=== PATIENT | female | born 1950 | race Caucasian/White ===

== ENCOUNTER 2016-06-21 06:00 | Observation (INO) | payer OTHER ==
[~2016-06-21] VITALS: Ht 157.5 cm; Wt 82.0 kg
[2016-06-21] MEDS ORDERED: ONDANSETRON INJ 2 MG/ML 2 ML VIAL IV STA (06:09)
[2016-06-21] MEDS ORDERED: ONDANSETRON INJ 2 MG/ML 2 ML VIAL ONE (06:09)
[2016-06-21] MEDS ORDERED: SODIUM CHLORIDE 0.9% 1000ML 1,000 ML IV STA ×2 (06:09→07:10)
--- NOTE | 2016-06-21 06:25 | EMERGENCY ROOM VISIT NOTE ---
History Report prepared by Andrei: Arlene Forbes Under the Supervision of: Dr. Shannon Ho D.O. 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 The nursing staff states that the patient took at Phenergan suppository with no relief. The patient states that she was not having any symptoms before going to bed and woke up with the symptoms. The patient denies any abdominal pain, diarrhea, fever or chills. She states that usually when she gets sick with any illness she experiences nausea and vomiting. The patient states that she recently had a colonoscopy that did not show anything significant. 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 A total of 10 systems reviewed and were otherwise negative. Past Medical & Surgical Medical Problems: (1) Diabetes mellitus Surgical Problems: (1) History of delivery (2) Hx of cholecystectomy Family History No significant family histoy secondary to age Social History Marital Status: Housing Status: lives with significant other Occupation Status: retired Current/Historical Medications Scheduled Glimepiride (Glimepiride), 2 MG PO BID Levothyroxine Sodium (Synthroid), 112 MCG PO DAILY Lisinopril/Hctz (Zestoretic 20MG/12.5MG), 1 TAB PO DAILY Metformin Hcl (Glucophage), 500 MG PO BID Omeprazole (Prilosec), 20 MG PO DAILY Scheduled PRN Meclizine HCl (Meclizine 25), 25 MG PO TID PRN for Dizziness or Vertigo Allergies Coded Allergies: Acetaminophen (Unverified Allergy, Intermediate, UNKNOWN, 06/21/16) Codeine (Unverified Allergy, Intermediate, SEVERE SHAKES/TREMORS, 06/21/16) Fentanyl (Unverified Allergy, Intermediate, UNKNOWN, 06/21/16) Hydromorphone (Unverified Allergy, Intermediate, UNKNOWN, 06/21/16) Levofloxacin (Unverified Allergy, Intermediate, SWELLING OF FACE/THROAT, ) Metformin (Unverified Allergy, Intermediate, ENDLESS DIARRHEA, 06/21/16) Oxycodone (Unverified Allergy, Intermediate, UNKNOWN, 06/21/16) Physical Exam Vital Signs Date Time Temp Pulse Resp B/P Pulse Ox O2 Delivery O2 Flow Rate FiO2 06/21/16 06:50 88 06/21/16 06:46 85 18 185/105 98 Room Air 06/21/16 06:00 36.5 91 22 164/111 98 Room Air Physical Exam General: Vomiting bile HEENT: Head - normocephalic and atraumatic Pupils are equal, round, and reactive to light. Extraocular eye muscles are intact, and sclera are anicteric. Nose - moist nasal mucosa without discharge. Mouth - moist buccal mucosa. Oropharynx is nonerythematous and there is no tonsillar exudate or edema noted. Neck: Supple; no JVD, nuchal rigidity, cervical lymphadenopathy. Heart: Regular rate and rhythm. There is a normal S1 and S2 with no murmurs, clicks, or gallops appreciated. Lungs: Clear to auscultation bilaterally with no wheezes, rales, or rhonchi. Abdomen: Soft, completely nontender, nondistended, with good bowel sounds. There are no palpable pulsatile masses or hepatosplenomegaly. There is no guarding, rigidity, or rebound noted. Extremities: No evidence of cyanosis, clubbing, or edema. There are easily palpable peripheral pulses. Skin: warm and dry with good turgor and no rashes. Medical Decision & Procedures ER Provider Diagnostic Interpretation: X-ray results as stated below per interpretation by me: Obstruction Series X-Ray: No free air. Tiny air fluid levels. Moderate colonic fecal retention. No obvious signs of obstruction. X-ray results as stated below per interpretation by me and the radiologist: CHEST AND ABDOMEN 2 VIEWS HISTORY: Generalized abdominal pain. Nausea. Vomiting. COMPARISON: None. FINDINGS: The heart is normal in size. No pleural effusions. No pneumothorax. The right lung is clear. There is a small cluster of nodular densities within the left upper lobe with the largest measuring 4 mm. Given the increased density these favor calcifications. No focal lung consolidations. Prior cholecystectomy. No pneumoperitoneum. No pneumatosis. No renal calculi. There are few small fluid levels within the right upper quadrant likely within the hepatic flexure of the colon. There is a relative paucity of small bowel gas which limits evaluation for bowel obstruction. However, there are no dilated loops of small bowel identified. IMPRESSION: 1. No acute cardiopulmonary process. 2. No evidence for small bowel obstruction. 3. Small fluid levels within the colon which can be seen in the setting of a gastroenteritis. Electronically signed by: Guillermo Canas M.D. 06/21/2016 7:[address] scan of the abdomen/pelvis: IMPRESSION: 1. Small hiatal hernia with apparent wall thickening of the distal esophagus/proximal stomach. This may be due to underdistention; however, esophagitis could appear similar. In addition, there is a locule of gas along the left lateral wall of the distal esophagus. This may be within a fold however extraluminal gas could appear similar. An esophageal tear would be difficult to exclude on this exam. Close clinical follow-up is recommended. If this patient has worsening chest/upper abdominal pain, a short-term follow-up chest CT with oral contrast is recommended. 2. No evidence for a bowel obstruction. 3. Mild biliary ductal dilatation. This is likely due to prior cholecystectomy but could be correlated with obstructive liver function tests. Laboratory Results 06/21/16 06:12 Red Blood Count 4.74, Mean Corpuscular Volume 82.9, Mean Corpuscular Hemoglobin 28.5, Mean Corpuscular Hemoglobin Concent 34.4, Mean Platelet Volume 9.7, Neutrophils (%) (Auto) 90.3, Lymphocytes (%) (Auto) 4.8, Monocytes (%) (Auto) 3.8, Eosinophils (%) (Auto) 0.6, Basophils (%) (Auto) 0.2, Neutrophils # (Auto) 11.78, Lymphocytes # (Auto) 0.62, Monocytes # (Auto) 0.50, Eosinophils # (Auto) 0.08, Basophils # (Auto) 0.02 06/21/16 06:12 Test 06/21/16 06:12 06/21/16 06:29 06/21/16 07:47 06/21/16 07:53 White Blood Count 13.04 K/uL (4.8-10.8) Red Blood Count 4.74 M/uL (4.2-5.4) Hemoglobin 13.5 g/dL (12.0-16.0) Hematocrit 39.3 % (37-47) Mean Corpuscular Volume 82.9 fL (80-100) Mean Corpuscular Hemoglobin 28.5 pg (25-34) Mean Corpuscular Hemoglobin Concent 34.4 g/dl (32-36) Platelet Count 229 K/uL (130-400) Mean Platelet Volume 9.7 fL (7.4-10.4) Neutrophils (%) (Auto) 90.3 % Lymphocytes (%) (Auto) 4.8 % Monocytes (%) (Auto) 3.8 % Eosinophils (%) (Auto) 0.6 % Basophils (%) (Auto) 0.2 % Neutrophils # (Auto) 11.78 K/uL (1.4-6.5) Lymphocytes # (Auto) 0.62 K/uL (1.2-3.4) Monocytes # (Auto) 0.50 K/uL (0.11-0.59) Eosinophils # (Auto) 0.08 K/uL (0-0.5) Basophils # (Auto) 0.02 K/uL (0-0.2) RDW Standard Deviation 42.0 fL (36.4-46.3) RDW Coefficient of Variation 13.8 % (11.5-14.5) Immature Granulocyte % (Auto) 0.3 % Immature Granulocyte # (Auto) 0.04 K/uL (0.00-0.02) Anion Gap 14.0 mmol/L (3-11) Est Creatinine Clear Calc Drug Dose 49.3 ml/min Estimated GFR () 60.2 Estimated GFR (Non- 51.9 BUN/Creatinine Ratio 17.5 (10-20) Calcium Level 9.1 mg/dl (8.5-10.1) Total Bilirubin 0.9 mg/dl (0.2-1) Direct Bilirubin 0.2 mg/dl (0-0.2) Aspartate Amino Transf (AST/SGOT) 14 U/L (15-37) Alanine Aminotransferase (ALT/SGPT) 25 U/L (12-78) Alkaline Phosphatase 74 U/L (45-117) Total Creatine Kinase 77 U/L (26-192) Creatine Kinase MB 0.7 ng/ml (0.5-3.6) Troponin I 0.037 ng/ml (0-0.045) Total Protein 7.7 gm/dl (6.4-8.2) Albumin 4.0 gm/dl (3.4-5.0) Lipase 99 U/L (73-393) Beta-Hydroxybutyric Acid 12.85 mg/dL (0.2-2.81) Creatine Kinase MB Ratio (0-3.0) Arterial Blood pH 7.38 (7.35-7.45) Arterial Blood Partial Pressure CO2 33 mmHg (35-46) Arterial Blood Partial Pressure O2 73 mm/Hg (80-95) Arterial Blood HCO3 19 mmol/L (19-24) Arterial Blood Oxygen Saturation 94.3 % (90-95) Arterial Blood Base Excess -4.9 mEq/L (-9-1.8) Arterial Blood Gas Delivery RA Taj Test POS (POS) Laboratory results per my review. Medications Administered Medications (Trade) Dose Ordered Sig/Ismael Route Start Time Stop Time Status Last Admin Dose Admin Sodium Chloride (Nss 1000ml) 1,000 ml @ 999 mls/hr Q1H1M STAT IV 06/21/16 06:09 06/21/16 07:09 DC 06/21/16 06:16 999 MLS/HR Ondansetron HCl 4 mg 4 mg NOW STAT IV 06/21/16 06:09 06/21/16 06:11 DC 06/21/16 06:16 4 MG Promethazine HCl 12.5 mg/Sodium Chloride 50.5 ml @ 204 mls/hr NOW STAT IV 06/21/16 06:52 06/21/16 07:06 DC 06/21/16 07:43 204 MLS/HR Sodium Chloride (Nss 1000ml) 1,000 ml @ 250 mls/hr Q4H STAT IV 06/21/16 07:10 06/21/16 11:09 06/21/16 07:43 250 MLS/HR Procedure Medications Administered: Ondansetron HCl Sodium Chloride Promethazine HCl 12.5 mg/Sodium Chloride ECG Indication: vomiting Rate (beats per minute): 88 Rhythm: normal sinus Findings: prolonged QT (slightly at 496 ms), other (Possible ST segment depression in AVL) Comparison ECG Date: no prior available ED Course 0604: Past medical records reviewed. The patient was evaluated in room A10. A complete history and physical exam was performed. An IV lock was initiated and labs are drones above. A twelve-lead EKG was obtained as described above. 0609: Ordered Zofran Inj 4 mg IV, Sodium Chloride 1,000 ml @ 999 mls/hr IV. 0645: I reevaluated the patient and she was still vomiting. The patient was noted to have a prolonged QT on EKG. I spoke with the pharmacist to determine an alternative antiemetics from Zofran. 0652: Ordered Promethazine HCl 12.5 mg/Sodium Chloride 50.5 ml @ 204 mls/hr IV. 0655: I reevaluated the patient and she was still vomiting and there was a foul smell to her vomit. She will go to have CT scan of the abdomen/pelvis to rule out bowel obstruction.. 0708: While the patient was in the CT room, I discussed the patient's lab results with her . 0710: Ordered Sodium Chloride 1,000 ml @ 250 mls/hr IV. 0730: I went to reevaluate the patient and she was still in the CT room. 0748: I reevaluated the patient and she was still nauseous. She is currently receiving the IV Phenergan. 0755: I discussed the case with Dr. Rachael BUITRAGO Hospitalist. He agreed to evaluate the patient for further management and care. Medical Decision The patient is a 66 year old female who presents to the ED with vomiting. Differential diagnosis includes small bowel obstruction, gastritis, viral illness, pancreatitis, colicystitis. Labs: White count 13 Stable H&H BHA 3.8 Glucose 337 BUN 19 Creatinine 1.1 LFTs normal This is a 66-year-old female patient with a history of type 2 diabetes that presents to the emergency department with intractable vomiting. The patient had a blood sugar greater than 300. Her BHA was elevated and was concerning for DKA. An ABG was drawn and is currently pending. The patient had persistent vomiting despite receiving IV antiemetics. She also complained of some abdominal pain. She went for CT scan of the abdomen/pelvis to rule out small bowel obstruction. This revealed no evidence of a small bowel obstruction. However there was questionable gas along the left lateral wall of the distal esophagus. An esophageal tear could not be excluded. The patient will require close clinical following. Upon returning from radiology, she was receiving the IV Phenergan. I discussed the case with the [facility] hospitalist and they will evaluate for further management. Consults Time Called: 0750 Consulting Physician: Dr. Rachael BUITRAGO Hospitalist Returned Call: [phone] I discussed the case with Dr. Rachael BUITRAGO Hospitalist. He agreed to evaluate the patient for further management and care. Impression Primary Impression: DKA (diabetic ketoacidosis) Additional Impression: Vomiting Scribe Attestation The scribe's documentation has been prepared under my direction and personally reviewed by me in its entirety. I confirm that the note above accurately reflects all work, treatment, procedures, and medical decision making performed by me. Departure Information Dispostion Being Evaluated By Hospitalist Referrals No Doctor, Assigned (PCP)
[2016-06-21 06:39] LABS: CALCIUM 9.1 mg/dl (8.5-10.1); POTASSIUM 3.6 mmol/L (3.5-5.1)
[2016-06-21 06:42] LABS: BUN/CREATININE RATIO 17.5 (10-20); CREATININE 1.1 mg/dl (0.60-1.20)
[2016-06-21 06:45] LABS: BASO % 0.2 %; BASO ABS # 0.02 K/uL (0-0.2); COMPLETE YES; EOS % 0.6 %; HEMATOCRIT 39.3 % (37-47); IG% 0.3 %; LYMPH % 4.8 %; LYMPH ABS # 0.62 K/uL (1.2-3.4); MEAN CELL VOLUME 82.9 fL (80-100); MEAN CORPUSCULAR HEMOGLOBIN 28.5 pg (25-34); MEAN CORPUSCULAR HGB CONC 34.4 g/dl (32-36); MEAN PLATELET VOLUME 9.7 fL (7.4-10.4); MONO % 3.8 %; NEUT % 90.3 %; PLATELET COUNT 229 K/uL (130-400); RED BLOOD COUNT 4.74 M/uL (4.2-5.4); WHITE BLOOD COUNT 13.04 K/uL (4.8-10.8)
[2016-06-21] MEDS ORDERED: PROMETHAZINE HCL INJ 12.5 MG in SODIUM CHLORIDE 0.9% 50ML 50 ML IV STA ×2 (06:52→08:14)
[2016-06-21 06:53] LABS: BETA-HYDROXYBUTYRATE 12.85 mg/dL (0.2-2.81); CKMB/CK RATIO 0.9 (0-3.0)
[2016-06-21] MEDS ORDERED: OPTIRAY 320 IV PRN ×2 (07:00→17:45)
--- NOTE | 2016-06-21 07:12 | DIAGNOSTIC IMAGING REPORT ---
CHEST AND ABDOMEN 2 VIEWS HISTORY: Generalized abdominal pain. Nausea. Vomiting. COMPARISON: None. FINDINGS: The heart is normal in size. No pleural effusions. No pneumothorax. The right lung is clear. There is a small cluster of nodular densities within the left upper lobe with the largest measuring 4 mm. Given the increased density these favor calcifications. No focal lung consolidations. Prior cholecystectomy. No pneumoperitoneum. No pneumatosis. No renal calculi. There are few small fluid levels within the right upper quadrant likely within the hepatic flexure of the colon. There is a relative paucity of small bowel gas which limits evaluation for bowel obstruction. However, there are no dilated loops of small bowel identified. IMPRESSION: 1. No acute cardiopulmonary process. 2. No evidence for small bowel obstruction. 3. Small fluid levels within the colon which can be seen in the setting of a gastroenteritis. Electronically signed by: Guillermo Canas M.D. 06/21/2016 7:10 AM
[2016-06-21] MEDS ORDERED: LEVO112T2 PO (07:15)
[2016-06-21] MEDS ORDERED: AMR2 PO (07:15)
[2016-06-21] MEDS ORDERED: LISI-787 PO (07:15)
[2016-06-21] MEDS ORDERED: GLC/500 PO (07:15)
[2016-06-21] MEDS ORDERED: MECL-91 PO (07:15)
[2016-06-21] MEDS ORDERED: PRLSR20 PO (07:15)
[2016-06-21 08:01] LABS: URINE APPEARANCE CLEAR (CLEAR); URINE BILIRUBIN NEG (NEG); URINE COLOR YELLOW; URINE EPITHELIAL CELL AUTO 0-5 /lpf (0-5); URINE NITRITE NEG (NEG); URINE PH 7.5 (4.5-7.5); URINE SPECIFIC GRAVITY 1.032 (1.000-1.030); UROBILINOGEN NEG (NEG)
--- NOTE | 2016-06-21 08:04 | DIAGNOSTIC IMAGING REPORT ---
CT OF THE ABDOMEN AND PELVIS WITH CONTRAST CLINICAL HISTORY: Abdominal pain and vomiting. Evaluate for small bowel obstruction. COMPARISON STUDY: Chest radiograph with abdominal series June 21, 2016. TECHNIQUE: Following IV administration of 119 mL of Optiray-320, axial images of the abdomen and pelvis were obtained from the lung bases to the proximal femurs. Images were reviewed in the axial, sagittal, and coronal planes. IV contrast was administered without complication. CT DOSE: 570.57 mGy.cm FINDINGS: Visualized portions of the lower chest demonstrate a small hiatal hernia. There is apparent wall thickening of the distal esophagus and proximal stomach. This may be due to underdistention. One image 34 of 461, there is a locule of gas along the left lateral aspect of the distal esophagus/proximal stomach. There is mild dilatation of the common bile duct status post cholecystectomy. There may be fatty infiltration of the liver. The spleen, adrenal glands and kidneys are unremarkable. There is no evidence for a bowel obstruction. The appendix is not visualized. No bowel wall thickening is identified. There is no pneumatosis, free air or portal venous gas. The colon is mildly fluid-filled. Sigmoid diverticulosis is noted without evidence for acute diverticulitis. An old mild T12 compression deformity is present. IMPRESSION: 1. Small hiatal hernia with apparent wall thickening of the distal esophagus/proximal stomach. This may be due to underdistention; however, esophagitis could appear similar. In addition, there is a locule of gas along the left lateral wall of the distal esophagus. This may be within a fold however extraluminal gas could appear similar. An esophageal tear would be difficult to exclude on this exam. Close clinical follow-up is recommended. If this patient has worsening chest/upper abdominal pain, a short-term follow-up chest CT with oral contrast is recommended. 2. No evidence for a bowel obstruction. 3. Mild biliary ductal dilatation. This is likely due to prior cholecystectomy but could be correlated with obstructive liver function tests. Electronically signed by: Rafi Luther M.D. 06/21/2016 8:02 AM
[2016-06-21 08:05] LABS: ARTERIAL BLD GAS O2 SATURATION 94.3 % (90-95); ARTERIAL BLOOD GAS BASE EXCESS -4.9 mEq/L (-9-1.8); ARTERIAL BLOOD GAS HCO3 19 mmol/L (19-24); ARTERIAL BLOOD GAS PO2 73 mm/Hg (80-95); ARTERIAL BLOOD GAS pH 7.38 (7.35-7.45)
[2016-06-21 08:06] LABS: ALLEN TEST POS (POS); O2 ADMINISTRATION RA
[2016-06-21 08:11] LABS: MANUAL MICROSCOPIC REQUIRED? NO; REVIEW REQ? NO
[2016-06-21 08:37] VITALS: O2SAT 99; BMI 33.1
[2016-06-21] MEDS ORDERED: ENOXAPARIN 40 MG/0.4 ML SYR SQ SCH (08:45)
[2016-06-21] MEDS ORDERED: ALUMINUM/MAGNESIUM/SIMETH (MAALOX MAX) 30 ML UDC PO PRN (08:45)
[2016-06-21] MEDS ORDERED: MAGNESIUM HYDROXIDE SUSP 30 ML UDC PO PRN (08:45)
[2016-06-21] MEDS ORDERED: POLYETHYLENE (MIRALAX) 17 GM PACK PO PRN (08:45)
[2016-06-21] MEDS ORDERED: HydrALAZINE HCL 20 MG/ML VIAL IV. PRN (08:45)
[2016-06-21] MEDS ORDERED: LISINOPRIL/HCTZ 20/12.5MG TAB PO SCH (09:00)
--- NOTE | 2016-06-21 09:11 | History and Physical ---
History & Physical Date & Time of Service: Jun 21, 2016 at 08:51 Chief Complaint: Vomiting/Abdominal Pain Primary Care Physician: No Doctor, Assigned History of Present Illness Source: patient, family Patient is a pleasant 66 y/o female, with PMHx of DM, HTN, hypothyroidism, and GERD, who presented to the ED because of intractable nausea and vomiting. Symptoms started around 0130 this AM. She admits to lightheadedness when standing. She denies being around any sick contacts. She took an Phenergan suppository IT TRAINEE in ED with no relief. Patient was given IV Zofran and Phenergan in ED, with no relief in symptoms. Patient denies any fever, chills, sweats, dizziness, vision changes, CP, palpitations, edema, SOB, wheezing, cough , abdominal pain, diarrhea, urinary symptoms, melena, numbness/tingling, weakness, muscle/joint pain, anxiety/depression, active bleeding, or new skin discoloration/changes. Past Medical/Surgical History Medical Problems: (1) Diabetes mellitus Status: Chronic Surgical Problems: (1) History of delivery Status: Resolved (2) Hx of cholecystectomy Status: Resolved Family History No significant family histoy secondary to age Social History Smoking Status: Never Smoker Marital Status: Occupational Status: retired Immunizations History of Influenza Vaccine: Unknown Allergies Coded Allergies: Acetaminophen (Unverified Allergy, Intermediate, UNKNOWN, 06/21/16) Codeine (Unverified Allergy, Intermediate, SEVERE SHAKES/TREMORS, 06/21/16) Fentanyl (Unverified Allergy, Intermediate, UNKNOWN, 06/21/16) Hydromorphone (Unverified Allergy, Intermediate, UNKNOWN, 06/21/16) Levofloxacin (Unverified Allergy, Intermediate, SWELLING OF FACE/THROAT, ) Metformin (Unverified Allergy, Intermediate, ENDLESS DIARRHEA, 06/21/16) Oxycodone (Unverified Allergy, Intermediate, UNKNOWN, 06/21/16) Home Medications Scheduled Glimepiride (Glimepiride), 2 MG PO BID Levothyroxine Sodium (Synthroid), 112 MCG PO DAILY Lisinopril/Hctz (Zestoretic 20MG/12.5MG), 1 TAB PO DAILY Metformin Hcl (Glucophage), 500 MG PO BID Omeprazole (Prilosec), 20 MG PO DAILY Scheduled PRN Meclizine HCl (Meclizine 25), 25 MG PO TID PRN for Dizziness or Vertigo Physical Exam Vital Signs Date Time Temp Pulse Resp B/P Pulse Ox O2 Delivery O2 Flow Rate FiO2 06/21/16 08:14 104 20 159/100 99 Room Air 06/21/16 06:50 88 06/21/16 06:46 85 18 185/105 98 Room Air 06/21/16 06:00 36.5 91 22 164/111 98 Room Air General Appearance: no apparent distress Head: normocephalic, atraumatic Eyes: normal inspection, PERRL ENT: hearing grossly normal Neck: supple Respiratory/Chest: lungs clear, no respiratory distress, no accessory muscle use Cardiovascular: regular rate, rhythm, no edema, normal peripheral pulses Abdomen/GI: normal bowel sounds, non tender, soft Extremities/Musculoskelatal: no calf tenderness, no pedal edema Neurologic/Psych: alert, normal mood/affect, oriented x 3 Skin: normal color, warm/dry, no rash Diagnostics Laboratory Results Results Past 24 Hours Test 06/21/16 06:12 06/21/16 06:29 06/21/16 07:47 06/21/16 07:53 Range/Units White Blood Count 13.04 4.8-10.8 K/uL Red Blood Count 4.74 4.2-5.4 M/uL Hemoglobin 13.5 12.0-16.0 g/dL Hematocrit 39.3 37-47 % Mean Corpuscular Volume 82.9 80-100 fL Mean Corpuscular Hemoglobin 28.5 25-34 pg Mean Corpuscular Hemoglobin Concent 34.4 32-36 g/dl Platelet Count 229 130-400 K/uL Mean Platelet Volume 9.7 7.4-10.4 fL Neutrophils (%) (Auto) 90.3 % Lymphocytes (%) (Auto) 4.8 % Monocytes (%) (Auto) 3.8 % Eosinophils (%) (Auto) 0.6 % Basophils (%) (Auto) 0.2 % Neutrophils # (Auto) 11.78 1.4-6.5 K/uL Lymphocytes # (Auto) 0.62 1.2-3.4 K/uL Monocytes # (Auto) 0.50 0.11-0.59 K/uL Eosinophils # (Auto) 0.08 0-0.5 K/uL Basophils # (Auto) 0.02 0-0.2 K/uL RDW Standard Deviation 42.0 36.4-46.3 fL RDW Coefficient of Variation 13.8 11.5-14.5 % Immature Granulocyte % (Auto) 0.3 % Immature Granulocyte # (Auto) 0.04 0.00-0.02 K/uL Sodium Level 141 136-145 mmol/L Potassium Level 3.6 3.5-5.1 mmol/L Chloride Level 105 98-107 mmol/L Carbon Dioxide Level 22 21-32 mmol/L Anion Gap 14.0 3-11 mmol/L Blood Urea Nitrogen 19 7-18 mg/dl Creatinine 1.10 0.60-1.20 mg/dl Est Creatinine Clear Calc Drug Dose 49.3 ml/min Estimated GFR () 60.2 Estimated GFR (Non- 51.9 BUN/Creatinine Ratio 17.5 10-20 Random Glucose 337 70-99 mg/dl Calcium Level 9.1 8.5-10.1 mg/dl Total Bilirubin 0.9 0.2-1 mg/dl Direct Bilirubin 0.2 0-0.2 mg/dl Aspartate Amino Transf (AST/SGOT) 14 15-37 U/L Alanine Aminotransferase (ALT/SGPT) 25 12-78 U/L Alkaline Phosphatase 74 45-117 U/L Total Creatine Kinase 77 26-192 U/L Creatine Kinase MB 0.7 0.5-3.6 ng/ml Creatine Kinase MB Ratio 0.9 0-3.0 Troponin I 0.037 0-0.045 ng/ml Total Protein 7.7 6.4-8.2 gm/dl Albumin 4.0 3.4-5.0 gm/dl Lipase 99 73-393 U/L Beta-Hydroxybutyric Acid 12.85 0.2-2.81 mg/dL Urine Color YELLOW Urine Appearance CLEAR CLEAR Urine pH 7.5 4.5-7.5 Urine Specific [place] 1.032 1.000-1.030 Urine Protein NEG NEG Urine Glucose (UA) 3+ NEG Urine Ketones 1+ NEG Urine Occult Blood 1+ NEG Urine Nitrite NEG NEG Urine Bilirubin NEG NEG Urine Urobilinogen NEG NEG Urine Leukocyte Esterase NEG NEG Urine WBC (Auto) 0 0-5 /hpf Urine RBC (Auto) 5-10 0-4 /hpf Urine Hyaline Casts (Auto) 0 0-5 /lpf Urine Epithelial Cells (Auto) 0-5 0-5 /lpf Urine Bacteria (Auto) NEG NEG Arterial Blood pH 7.38 7.35-7.45 Arterial Blood Partial Pressure CO2 33 35-46 mmHg Arterial Blood Partial Pressure O2 73 80-95 mm/Hg Arterial Blood HCO3 19 19-24 mmol/L Arterial Blood Oxygen Saturation 94.3 90-95 % Arterial Blood Base Excess -4.9 -9-1.8 mEq/L Arterial Blood Gas Delivery RA Taj Test POS POS Diagnostic Radiology CHEST AND ABDOMEN 2 VIEWS HISTORY: Generalized abdominal pain. Nausea. Vomiting. COMPARISON: None. FINDINGS: The heart is normal in size. No pleural effusions. No pneumothorax. The right lung is clear. There is a small cluster of nodular densities within the left upper lobe with the largest measuring 4 mm. Given the increased density these favor calcifications. No focal lung consolidations. Prior cholecystectomy. No pneumoperitoneum. No pneumatosis. No renal calculi. There are few small fluid levels within the right upper quadrant likely within the hepatic flexure of the colon. There is a relative paucity of small bowel gas which limits evaluation for bowel obstruction. However, there are no dilated loops of small bowel identified. IMPRESSION: 1. No acute cardiopulmonary process. 2. No evidence for small bowel obstruction. 3. Small fluid levels within the colon which can be seen in the setting of a gastroenteritis. Electronically signed by: Guillermo Canas M.D. 06/21/2016 7:10 AM The status of this report is Signed. Draft = Not yet reviewed or approved by Radiologist. Signed = Reviewed and approved by Radiologist. CT OF THE ABDOMEN AND PELVIS WITH CONTRAST CLINICAL HISTORY: Abdominal pain and vomiting. Evaluate for small bowel obstruction. COMPARISON STUDY: Chest radiograph with abdominal series June 21, 2016. TECHNIQUE: Following IV administration of 119 mL of Optiray-320, axial images of the abdomen and pelvis were obtained from the lung bases to the proximal femurs. Images were reviewed in the axial, sagittal, and coronal planes. IV contrast was administered without complication. CT DOSE: 570.57 mGy.cm FINDINGS: Visualized portions of the lower chest demonstrate a small hiatal hernia. There is apparent wall thickening of the distal esophagus and proximal stomach. This may be due to underdistention. One image 34 of 461, there is a locule of gas along the left lateral aspect of the distal esophagus/proximal stomach. There is mild dilatation of the common bile duct status post cholecystectomy. There may be fatty infiltration of the liver. The spleen, adrenal glands and kidneys are unremarkable. There is no evidence for a bowel obstruction. The appendix is not visualized. No bowel wall thickening is identified. There is no pneumatosis, free air or portal venous gas. The colon is mildly fluid-filled. Sigmoid diverticulosis is noted without evidence for acute diverticulitis. An old mild T12 compression deformity is present. IMPRESSION: 1. Small hiatal hernia with apparent wall thickening of the distal esophagus/proximal stomach. This may be due to underdistention; however, esophagitis could appear similar. In addition, there is a locule of gas along the left lateral wall of the distal esophagus. This may be within a fold however extraluminal gas could appear similar. An esophageal tear would be difficult to exclude on this exam. Close clinical follow-up is recommended. If this patient has worsening chest/upper abdominal pain, a short-term follow-up chest CT with oral contrast is recommended. 2. No evidence for a bowel obstruction. 3. Mild biliary ductal dilatation. This is likely due to prior cholecystectomy but could be correlated with obstructive liver function tests. Electronically signed by: Rafi Luther M.D. 06/21/2016 8:02 AM The status of this report is Signed. Draft = Not yet reviewed or approved by Radiologist. Signed = Reviewed and approved by Radiologist. EKG LANDON HERNANDEZ ID:[id number] 21-JUN-2016 06:13:39 [facility] Normal sinus rhythm Incomplete right bundle branch block Left anterior fascicular block Left ventricular hypertrophy with repolarization abnormality Prolonged QT Abnormal ECG No previous ECGs available 25mm/s 10mm/mV 150Hz 8.0 SP2 12SL 241 HD EVIE: 12 Referred by: Referred Self Unconfirmed Vent. rate 88 BPM NC interval 148 ms QRS duration 100 ms QT/QTc 410/496 ms P-R-T axes 30 -49 48 1950 (66 yr) Female Room:A10 Loc:15 [employer] Finisher:Lakeisha Hutchinson ind: Impression Assessment and Plan 66 y/o female, with PMHx of DM, HTN, hypothyroidism, and GERD, who presented to the ED because of intractable nausea and vomiting. Nausea/Vomiting: -Admit med/surg obs -IV NSS + 20 mEq KCl @ 125 ml/hr -NPO except sips and ice chips -IV Compazine PRN for nausea --Avoid Zofran due to prolonged QT on EKG -Repeat EKG tomorrow AM -Check rapid flu -Follow PRP and CBC ?Esophageal tear: -Abdominal CT could not exclude. Will follow clinically. No signs/symptoms at admission. DM: -Hold Metformin and Glimepiride -Sliding insulin scale -BSG AC & HS HTN: -Resume Lisinopril/HCTZ when able to tolerate -Add Hydralazine IV PRN for SBP >170 or DBP >100 Hypothyroidism: -Resume Synthroid when able to tolerate GERD: -Resume Omeprazole at discharge DVT prophylaxis: -Early ambulation -Hold chemical therapy due to ?esophageal tear -EVE and SCDs Code Status: -LEVEL I, FULL Level of Care Med/Surg Resuscitation Status FULL RESUSCITATION VTE Prophylaxis VTE Risk Assessment Done? Y/N: Yes Risk Level: Low Given or contraindicated: T.EMeghana Stockings, SCD's Reviewed: Pt Seen/Exam by Me, HO Notes, Labs, RAD, EKG History Agree with above PA's HPI/PMH/PSH/ROS. I discussed her case with Dr. Villafuerte of CT Surgery who recommended GI consultation for possible esophageal mass along with the locule of gas in the esophagus. Discussed case also with Xochitl Connell of GI. When I saw pt she was having persistent vomiting despite having phenergan, Zofran earlier in the day and IV compazine which only took away her vomiting and dry heaving for 1 hour. She denies a thunderclap type of headache but does state that she has had a dull 5/10 pain across her upper posterior neck and occipital region since this all started. The neck pain/headache did start after she started vomiting. She denies any visual changes, facial or body numbness/tingling. She has not had any recent trauma or done any heavy lifting. Her BPs have continued to be quite elevated as well. FH is unknown as she is adopted. Constitutional: denies: fever EENTM: denies: blurred vision, double vision Respiratory: negative: short of breath Cardiovascular: denies chest pain Gastrointestinal/Abdominal: positive: nausea, vomiting, negative: abdominal pain, diarrhea Genitourinary: positive no symptoms reported Musculoskeletal: negative: joint pain Skin: negative: rash Neurological/Psych: positive: no symptoms reported Hematologic/Lymphatic: positive: no symptoms reported Immunocompromise: positive: no symptoms reported All Other Systems: Reviewed and Negative General Appearance: WD/WN, no apparent distress Eye Exam: bilateral eye EOMI, bilateral eye PERRL, bilateral eye normal inspection Ears, Nose, Throat: hearing grossly normal, pharynx normal Neck: non-tender, full range of motion, supple, normal inspection, trachea midline Respiratory: lungs clear, normal breath sounds, no respiratory distress, no accessory muscle use Cardiovascular: normal peripheral pulses, regular rate, rhythm, no edema, no gallop, no JVD, no murmur Gastrointestinal: normal bowel sounds, non tender, soft, no organomegaly Extremities: normal range of motion, non-tender, normal inspection, no pedal edema, no calf tenderness Neurologic/Psychiatric: market survey representative II-XII nml as tested (pupils small about 2-3mm but reactive and no APD, no photophobia on exam, not able to perform funduscopic exam at bedside, CN 2-12 intact and no visual field deficits grossly), no motor/ sensory deficits, alert, normal mood/affect, oriented x 3 Skin Characteristics: normal color, warm/dry Lymphatic: no adenopathy Assessment/Plan Agree with above PA A/P with the following exceptions/additions: Persistent N/V, Abnormal appearing esophagus and possible intraluminal locule of gas in esophagus on CT Abd/pel Given neck pain and headache, elevated BPs, minimal response to multiple antiemetics, need to r/o vertebral artery dissection. Although Neuro exam normal so not as likely. More likely is a viral gastroenteritis with dehydration causing posterior headache WBCs mildly elevated at 13k on admission. FLu swab negative, afebrile. -check urgent CTA head and neck, d/w pt and her -continue antiemetics and try reglan which she has used in the past, continue compazine -continue IVFs with KCl -appreciate GI and CT Surgery consultations -plan for gastrograffin swallow when can tolerate and if no tear, proceed with EGD -follow labs for lytes -continue IV PPI as per GI DM Type II -usually fairly well controlled at home until recent prednisone use for bronchitis about 1 month ago and then glucose out of control at home since then, recently increased her glyburide to bid in addition to her metformin. She is not in DKA, pH 7.38, HCO3 was normal -agree with plan as above -check HgbA1C here HTN with accelerated HTN--> BPs never this high as per pt, she threw up her antihypertensive this AM but still very high, could be due to intracranial or extracranial process as above. -hydralazine prn -checking CTA head/neck Proph- SCDs, TEDs
[2016-06-21] MEDS ORDERED: DEXTROSE 50% 50 ML SYR IV PRN (09:30)
[2016-06-21] MEDS ORDERED: GLUCOSE 10 TABS/TUBE PO PRN (09:30)
[2016-06-21] MEDS ORDERED: GLUCOSE 40% GEL 15 GM TUBE PO PRN (09:30)
[2016-06-21] MEDS ORDERED: GLUCAGON FOR INJ 1 MG VIAL SQ PRN (09:30)
[2016-06-21 10:15] VITALS: BP 166/97; PULSE 87; TEMP 36.6; O2SAT 96
--- NOTE | 2016-06-21 10:53 | Gastrointestinal Consultation ---
Gastrointestinal Consultation Date of Consultation: Jun 21, 2016 Attending Physician: Dr. Owens Consulting Physician: Dr. Carrington/CHEYENNE Bolivar Reason for Consultation: N/V. Abnormal CT History of Present Illness Patient is a 66 year old female with a history of GERD, hypothyroidism, HTN, and diabetes presenting to the ER early this morning after a sudden onset of nausea with vomiting beginning approximately 5 hours prior to arrival. She has been having continued symptoms of nausea and vomiting despite use of antiemetics in the hospital. Emesis has been bilious in nature, not coffee- ground or bloody. She denies any chest pain, shortness of breath or [place]. She does report some "soreness" in her chest. Denies any abdominal pain, melanotic stools. She states she is not taking any medications for her reflux at home. She was previously prescribed a two week course of Prilosec a few months ago but states she did not need to take the medication as she discontinued consumption of coffee and her pyrosis resolved. On admission, she was noted to have a mild leukocytosis of 13.04, normal H&H of 13.5 and 39.3 but slightly elevated BUN of 19. She did undergo a CT a/p with IV enhancement which demonstrated a small hiatus hernia, wall thickening of the distal esophagus and proximal stomach as well as "locule of gas along the left lateral aspect of the distal esophagus/proximal stomach". There was also mention of mild biliary ductal dilation in the setting of prior cholecystectomy although her liver panel was normal. She states she has undergone a prior upper endoscopy several years ago (not performed locally) and this testing was reportedly unremarkable. Past Medical/Surgical History Medical Problems: (1) DKA (diabetic ketoacidosis) Status: Acute (2) Vomiting Status: Acute Past Medical History: See HPI Past Surgical History: 1. EGD 2. Cholecystectomy Family History No significant family histoy secondary to age Negative for GI malignancy Social History Smoking Status: Never Smoker Alcohol Use: none Marital Status: Housing Status: lives with significant other Occupation Status: retired Allergies Coded Allergies: Acetaminophen (Unverified Allergy, Intermediate, UNKNOWN, 06/21/16) Codeine (Unverified Allergy, Intermediate, SEVERE SHAKES/TREMORS, 06/21/16) Fentanyl (Unverified Allergy, Intermediate, UNKNOWN, 06/21/16) Hydromorphone (Unverified Allergy, Intermediate, UNKNOWN, 06/21/16) Levofloxacin (Unverified Allergy, Intermediate, SWELLING OF FACE/THROAT, ) Metformin (Unverified Allergy, Intermediate, ENDLESS DIARRHEA, 06/21/16) Oxycodone (Unverified Allergy, Intermediate, UNKNOWN, 06/21/16) Current Medications Home Meds and Scripts Medications Dose Route/Sig Max Daily Dose Days Date Category Prilosec (Omeprazole) 20 Mg Capcr 20 Mg PO DAILY 06/21/16 Reported Glucophage (Metformin Hcl) 500 Mg Tab 500 Mg PO BID 06/21/16 Reported Meclizine 25 (Meclizine HCl) 25 Mg Tab 25 Mg PO TID PRN 06/21/16 Reported Synthroid (Levothyroxine Sodium) 112 Mcg Tab 112 Mcg PO DAILY 06/21/16 Reported Zestoretic 20MG/12.5MG (HCTZ/Lisinopril) Tab 1 Tab PO DAILY 06/21/16 Reported Glimepiride 2 Mg Tab 2 Mg PO BID 06/21/16 Reported Review of Systems See HPI for pertinent positives & negatives. A total of 10 systems reviewed and were otherwise negative. Physical Exam Date Time Temp Pulse Resp B/P Pulse Ox O2 Delivery O2 Flow Rate FiO2 06/21/16 10:15 36.6 87 20 166/97 96 Room Air 06/21/16 09:09 95 06/21/16 08:37 99 Room Air 06/21/16 08:14 104 20 159/100 99 Room Air 06/21/16 06:50 88 06/21/16 06:46 85 18 185/105 98 Room Air 06/21/16 06:00 36.5 91 22 164/111 98 Room Air General Appearance: WD/WN, + mild distress Eyes: EOMI ENT: hearing grossly normal Neck: supple Respiratory/Chest: lungs clear, normal breath sounds, no respiratory distress Cardiovascular: regular rate, rhythm, no gallop, no murmur Abdomen: normal bowel sounds, non tender, soft Extremities: no pedal edema Neurologic/Psych: alert, normal mood/affect, oriented x 3 Skin: no jaundice, warm/dry Laboratory Results Last 24 Hours Test 06/21/16 06:12 06/21/16 06:29 06/21/16 07:47 1/2/17 07:53 White Blood Count 13.04 K/uL Red Blood Count 4.74 M/uL Hemoglobin 13.5 g/dL Hematocrit 39.3 % Mean Corpuscular Volume 82.9 fL Mean Corpuscular Hemoglobin 28.5 pg Mean Corpuscular Hemoglobin Concent 34.4 g/dl Platelet Count 229 K/uL Mean Platelet Volume 9.7 fL Neutrophils (%) (Auto) 90.3 % Lymphocytes (%) (Auto) 4.8 % Monocytes (%) (Auto) 3.8 % Eosinophils (%) (Auto) 0.6 % Basophils (%) (Auto) 0.2 % Neutrophils # (Auto) 11.78 K/uL Lymphocytes # (Auto) 0.62 K/uL Monocytes # (Auto) 0.50 K/uL Eosinophils # (Auto) 0.08 K/uL Basophils # (Auto) 0.02 K/uL RDW Standard Deviation 42.0 fL RDW Coefficient of Variation 13.8 % Immature Granulocyte % (Auto) 0.3 % Immature Granulocyte # (Auto) 0.04 K/uL Sodium Level 141 mmol/L Potassium Level 3.6 mmol/L Chloride Level 105 mmol/L Carbon Dioxide Level 22 mmol/L Anion Gap 14.0 mmol/L Blood Urea Nitrogen 19 mg/dl Creatinine 1.10 mg/dl Est Creatinine Clear Calc Drug Dose 49.3 ml/min Estimated GFR () 60.2 Estimated GFR (Non- 51.9 BUN/Creatinine Ratio 17.5 Random Glucose 337 mg/dl Calcium Level 9.1 mg/dl Total Bilirubin 0.9 mg/dl Direct Bilirubin 0.2 mg/dl Aspartate Amino Transf (AST/SGOT) 14 U/L Alanine Aminotransferase (ALT/SGPT) 25 U/L Alkaline Phosphatase 74 U/L Total Creatine Kinase 77 U/L Creatine Kinase MB 0.7 ng/ml Creatine Kinase MB Ratio 0.9 Troponin I 0.037 ng/ml Total Protein 7.7 gm/dl Albumin 4.0 gm/dl Lipase 99 U/L Beta-Hydroxybutyric Acid 12.85 mg/dL Hepatitis C Antibody Screen NEG Urine Color YELLOW Urine Appearance CLEAR Urine pH 7.5 Urine Specific [place] 1.032 Urine Protein NEG Urine Glucose (UA) 3+ Urine Ketones 1+ Urine Occult Blood 1+ Urine Nitrite NEG Urine Bilirubin NEG Urine Urobilinogen NEG Urine Leukocyte Esterase NEG Urine WBC (Auto) 0 /hpf Urine RBC (Auto) 5-10 /hpf Urine Hyaline Casts (Auto) 0 /lpf Urine Epithelial Cells (Auto) 0-5 /lpf Urine Bacteria (Auto) NEG Arterial Blood pH 7.38 Arterial Blood Partial Pressure CO2 33 mmHg Arterial Blood Partial Pressure O2 73 mm/Hg Arterial Blood HCO3 19 mmol/L Arterial Blood Oxygen Saturation 94.3 % Arterial Blood Base Excess -4.9 mEq/L Arterial Blood Gas Delivery RA Taj Test POS Impression Patient is a 66 year old female admitted with nausea and vomiting as well as abnormal CT imaging suggestive of distal esophageal and proximal gastric wall thickening and possible esophageal tear. Plan 1. Keep NPO for now. 2. Gastrografin barium swallow for further evaluation of CT findings. 3. Start Protonix 40 mg IV BID. 4. Continue supportive measures with IV rehydration and antiemetics as prescribed. 5. Additional recommendations pending results of imaging and input from Dr. Villafuerte as he has been consulted as well. Thank you for allowing us to participate in the care of this patient. If you have any questions or concerns, please do not hesitate to contact us. Agree with CHEYENNE Bolivar as above Abd: Soft, NT, ND, +BS Continue IV PPI BID Gastrografin swallow today EGD in AM based on imaging studies Discussed case with Dr. Villafuerte
[2016-06-21] MEDS: PROCHLORPERAZINE INJ 10 MG in SYRINGE 8 ML IV PRN ×2 (11:07→16:53)
[2016-06-21] MEDS: NSS + 20MEQ KCL 1000ML 1,000 ML IV SCH ×2 (11:07→20:37)
[2016-06-21] MEDS: PANTOprazole INJ 40 MG in SYRINGE 0 ML IV SCH ×2 (11:07→20:36)
[2016-06-21] MEDS: INSULIN ASPART 100 UNITS/ML 3 ML PEN SC SCH ×3 (12:48→23:39)
[2016-06-21 13:47] LABS: INFLUENZA A PCR Neg for Influ A (NEG); INFLUENZA B PCR Neg for Influ B (NEG)
[2016-06-21 14:50] VITALS: Ht 157.5 cm; Wt 82.0 kg
--- NOTE | 2016-06-21 15:24 | SURGICAL CONSULTATION ---
DATE OF CONSULTATION: 06/21/2016 REASON FOR CONSULTATION: Distal esophageal abnormality. 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 She was in her usual state of health until about 1:00 this morning when she suddenly developed acute nausea with vomiting. After she vomited multiple times she developed some pain along her costal margins. She had some diaphoresis with this, but no real fevers. She denies diarrhea. She did not respond to antiemetics. She underwent a CT scan, there is an abnormality in distal esophagus and there was a questionable air in the wall of the esophagus indicating a possible tear. I was asked to evaluate her from a thoracic surgery standpoint. PAST MEDICAL HISTORY: 1. Hypothyroidism. 2. Diabetes mellitus. 3. History of cholelithiasis. 4. Gastroesophageal reflux disease. PAST SURGICAL HISTORY: 1. 2, para 2, aborta 0 ( x2). 2. Laparoscopic cholecystectomy. MEDICATIONS: 1. Glimepiride. 2. Synthroid. 3. Glucophage. 4. Prilosec. 5. Zestoretic. ALLERGIES: 1. ACETAMINOPHEN. 2. CODEINE. 3. FENTANYL. 4. HYDROMORPHONE. 5. LEVAQUIN. 6. OXYCODONE. 7. METFORMIN. SOCIAL HISTORY: The patient was born and raised in [place], [place]. She is . Her daughter lives here in [place] and has an 8-year-old daughter who is the patient's granddaughter. The patient retired and she and her moved here to [place] in September. She underwent a colonoscopy which was "okay" back in September. She has never smoked cigarettes. Does not really use alcohol. FAMILY MEDICAL HISTORY: The patient was adopted and does not know her mother and father. Her daughter suffers from eosinophilic esophagitis. Her son is healthy and her granddaughter is healthy. REVIEW OF SYSTEMS: The patient has not really lost any weight. She denies any nausea or vomiting. She got a Fitbit for [place] and has been walking several thousand steps a day. She can easily walk a mile. She denies any neurologic symptoms such as amaurosis fugax, transient ischemic attack. She has had no skin breakdown. She had no peripheral edema. She had no joint effusions. She denies palpitations or chest pain other than the costal margin pain after vomiting multiple times. She has had no diarrhea. She denies hematochezia. She has had no dyspnea on exertion. She has had no neurologic events such as amaurosis fugax. She does suffer from occasional vertigo and takes meclizine p.r.n. PHYSICAL EXAMINATION: GENERAL: This is a well-developed, well-nourished female who appears her stated age of 66. She stands 5 feet 2 inches tall and weighs 181 pounds. HEENT: Her extraocular movements are intact. Pupils are equal, round and reactive. Sclerae are anicteric. She has no nasolabial flattening. Tongue is midline. Oral mucosa is moist. I detect no evidence of oral candidiasis. She is missing several upper teeth, but her remaining teeth are in good repair. Oropharynx is clear. NECK: Supple. She has no supraclavicular or cervical lymphadenopathy, neck vein distention, thyromegaly or carotid bruits. LUNGS: She is moving air well without wheezing. HEART: She has a regular rate and rhythm of her heart. ABDOMEN: Does have some well healed incisions along the midline, but no evidence of hernia. She does have bowel sounds, though they are a bit depressed. She really is not very tender and soft. She has good femoral pulses. Good pedal pulses. No peripheral edema. No joint effusions. She has no focal deficits. She is awake, alert and oriented. NEUROLOGIC: Cranial nerves II through XII are intact. DATA: Her white count is just a bit elevated at 13,040. Her hemoglobin is 13.4. Platelet count is stable at 229,000. Her sodium is 141, potassium 3.6, chloride 105, bicarbonate 22. Her BUN and creatinine are 19 and 1.1 with glucose anywhere from 269-337. Her beta hydroxybutyrate acid was a bit elevated at 12.85. Albumin was normal. ASSESSMENT AND PLAN: Distal esophageal abnormality. The patient has been seen by gastroenterology and I agree with Chapis Manley and Dr. Titi Carrington in their evaluation and recommendations. I discussed this case with Dr. Carrington. The patient is going get a Gastrografin swallow tomorrow. If it looks good, we may proceed with an upper endoscopy. I had a long talk with the patient and her daughter who incidentally has her Ph.D. in biochemistry from [employer] [facility] [employer] [facility] [employer]. We had a long discussion about possibilities. I am concerned about possible Elis-Lowry tear. I do not think we are dealing with a Boerhaave syndrome, although it is possible. Also possibly we are dealing with a hiatal hernia or a mass in the distal esophagus. A Gastrografin swallow and possible upper endoscopy would be helpful in delineating this.
[2016-06-21 15:43] VITALS: BP 174/102; PULSE 89; TEMP 36.7; O2SAT 96
[2016-06-21] MEDS ORDERED: METOCLOPRAMIDE HCL INJ 5 MG/ML 2 ML VIAL IV PRN (17:00)
--- NOTE | 2016-06-21 18:25 | DIAGNOSTIC IMAGING REPORT ---
NECK CTA HISTORY: Pain dissection TECHNIQUE: Multiaxial CT images of the neck were performed following the intravenous administration of contrast to evaluate the major cervical vessels. Maximum intensity projection images were also obtained. All measurements were calculated based on NASCET criteria. COMPARISON STUDY: None. FINDINGS: The aortic arch and proximal great vessels are widely patent. There is no significant stenosis, occlusion, or dissection identified within the bilateral common carotid, internal carotid, or vertebral arteries. IMPRESSION: No significant stenosis, occlusion, or dissection identified within the carotid or vertebral arteries. Electronically signed by: Polo Julio M.D. 06/21/2016 6:23 PM
--- NOTE | 2016-06-21 18:28 | DIAGNOSTIC IMAGING REPORT ---
HEAD CTA HISTORY: Change in mental status TECHNIQUE: Multiaxial CT images of the head were performed both before and after the intravenous administration of contrast to evaluate the major cerebral vessels. Maximum intensity projection images were also obtained. COMPARISON: None. FINDINGS: There is no mass, hematoma, midline shift, or acute infarct. Visualized intracranial internal carotid arteries, distal vertebral arteries, and basilar artery are widely patent. There is no significant stenosis, occlusion, or aneurysm seen within the bilateral ACAs, MCAs, or computer specialist. Minimal scattered atherosclerotic change IMPRESSION: Minimal scattered atherosclerotic change. No major stenotic process. Negative CT brain Electronically signed by: Polo Julio M.D. 06/21/2016 6:26 PM
[2016-06-21 18:30] VITALS: BP 145/79; PULSE 98
[2016-06-21 23:54] VITALS: BP 126/76; PULSE 106; TEMP 38.3; O2SAT 97
[2016-06-22 00:53] VITALS: TEMP 37.6
[2016-06-22] MEDS: NSS + 20MEQ KCL 1000ML 1,000 ML IV SCH (04:48)
[2016-06-22] MEDS: INSULIN ASPART 100 UNITS/ML 3 ML PEN SC SCH ×4 (06:00→21:00)
[2016-06-22] MEDS ORDERED: LEVOTHYROXINE 112 MCG TAB PO SCH (06:30)
[2016-06-22 07:16] VITALS: BP 126/76; PULSE 106; TEMP 37.6; O2SAT 97
[2016-06-22 07:24] VITALS: BP 114/70; PULSE 83; TEMP 37; O2SAT 96
[2016-06-22 07:36] LABS: MEAN CELL VOLUME 83.3 fL (80-100); MEAN CORPUSCULAR HEMOGLOBIN 27.9 pg (25-34); MEAN CORPUSCULAR HGB CONC 33.4 g/dl (32-36); MEAN PLATELET VOLUME 9.4 fL (7.4-10.4); PLATELET COUNT 156 K/uL (130-400); RED BLOOD COUNT 3.84 M/uL (4.2-5.4)
[2016-06-22 07:47] LABS: ESTIMATED AVERAGE GLUCOSE 171 mg/dl; HA1C FLAG Normal (Normal)
[2016-06-22 08:09] LABS: BUN/CREATININE RATIO 18.7 (10-20); CREATININE 0.91 mg/dl (0.60-1.20); MAGNESIUM 1.7 mg/dl (1.8-2.4); POTASSIUM 3.5 mmol/L (3.5-5.1)
[2016-06-22 08:19] LABS: CALCIUM 7.3 mg/dl (8.5-10.1); THYROID STIMULATING HORMONE 0.538 uIu/ml (0.300-4.500)
[2016-06-22] MEDS ORDERED: MAGNESIUM SULFATE 1GM / D5W 1 GM in PREMIXED IN D5W 100 ML IV ONE (08:45)
[2016-06-22] MEDS: PANTOprazole INJ 40 MG in SYRINGE 0 ML IV SCH ×2 (09:10→21:07)
[2016-06-22] MEDS: SODIUM CHLOR 0.45% + 20MEQ KCL 1,000 ML IV SCH ×2 (09:10→21:07)
[2016-06-22] MEDS: LEVOTHYROXINE SODIUM IV SCH (09:10)
--- NOTE | 2016-06-22 11:05 | DIAGNOSTIC IMAGING REPORT ---
(BARIUM SWALLOW) ESOPHAGUS CLINICAL HISTORY: ? Distal esophageal teardysphagia COMPARISON STUDY: CT dated 06/21/2016 FLUOROSCOPY TIME: 0.7 minutes. FINDINGS: Mild esophageal irritability. No evidence for extravasation or obstructive change. Gas esophageal junction is unremarkable. IMPRESSION: Mild esophageal irritability. No evidence for extravasation or tear. Electronically signed by: Polo Julio M.D. 06/22/2016 11:03 AM
--- NOTE | 2016-06-22 12:53 | Hospitalist Progress Note ---
Hospitalist Progress Note Date of Service Jun 22, 2016. (Brittanie West ., SLY) Subjective Pt evaluation today including: conversation w/ patient, physical exam, chart review, lab review, review of studies, review of inpatient medication list Voiding: no voiding problems, no incontinence Patient states she is feeling well. She denies any recent nausea and vomiting. Patient denies any fever, chills, sweats, lightheadedness, dizziness, vision changes, CP, palpitations, edema, SOB, wheezing, cough, abdominal pain, nausea, vomiting, diarrhea, urinary symptoms, melena, numbness/tingling, weakness, muscle/joint pain, anxiety/depression, active bleeding, or new skin discoloration/changes. (Brittanie West ., ETHANC) Medications Current Inpatient Medications Medications (Trade) Dose Ordered Sig/Ismael Route Start Time Stop Time Status Last Admin Dose Admin Ioversol (Optiray 320) 100 ml UD PRN IV 06/21/16 07:00 06/25/16 06:59 Al Hydrox/Mg Hydrox/Simethicone (Maalox Max Susp) 15 ml Q4H PRN PO 06/21/16 08:45 07/21/16 08:44 Magnesium Hydroxide (Milk Of Magnesia Susp) 30 ml Q6H PRN PO 06/21/16 08:45 07/21/16 08:44 Polyethylene 17 gm 17 gm DAILY PRN PO 06/21/16 08:45 07/21/16 08:44 Prochlorperazine Edisylate/Syringe (Compazine Inj/ Syringe) 10 ml @ 5 mls/min Q6H PRN IV 06/21/16 08:45 07/21/16 08:44 06/21/16 16:53 5 MLS/MIN Hydralazine HCl (HydrALAZINE INJ) 10 mg Q8H PRN IV. 06/21/16 08:45 07/21/16 08:44 06/21/16 16:53 10 MG Glucose (Glucose 40% Gel) 15-30 GRAMS 15 GRAMS... UD PRN PO 06/21/16 09:30 07/21/16 09:29 Glucose (Glucose Chew Tab) 4-8 Tablets 4 Tabl... UD PRN PO 06/21/16 09:30 07/21/16 09:29 Dextrose (Dextrose 50% 50ML Syringe) 25-50ML OF 50% DW IV FOR... UD PRN IV 06/21/16 09:30 07/21/16 09:29 Glucagon 1 mg 1 mg UD PRN SQ 06/21/16 09:30 07/21/16 09:29 Pantoprazole Sodium/Syringe (Protonix Inj/ Syringe) 10 ml @ 5 mls/min BID@0900,2100 IV 06/21/16 11:00 07/21/16 10:59 06/22/16 09:10 5 MLS/MIN Metoclopramide HCl 10 mg 10 mg Q6H PRN IV 06/21/16 17:00 07/21/16 16:59 06/21/16 20:36 10 MG Levothyroxine Sodium/Syringe (Synthroid Inj/ Syringe) 3.3 ml @ 2 mls/min DAILY@09 IV 06/22/16 09:00 07/22/16 08:59 06/22/16 09:10 2 MLS/MIN Ioversol (Optiray 320) 125 ml UD PRN IV 06/21/16 17:45 06/25/16 17:44 Insulin Aspart SLIDING SCALE G... Q6 SC 06/22/16 00:00 07/22/16 00:00 Potassium Chloride/Sodium Chloride (06/21 Nss + 20meq KCl 1000ml) 1,000 ml @ 75 mls/hr [id number] IV 06/22/16 08:45 07/22/16 08:44 06/22/16 09:10 75 MLS/HR (Brittanie West, PA-C) Objective Vital Signs Date Time Temp Pulse Resp B/P Pulse Ox O2 Delivery O2 Flow Rate FiO2 06/22/16 08:48 Room Air 06/22/16 07:24 37.0 83 18 114/70 96 Room Air 06/22/16 07:16 37.6 106 18 126/76 97 Room Air 95 06/22/16 00:53 37.6 06/21/16 23:54 38.3 106 18 126/76 97 Room Air 06/21/16 18:30 98 145/79 06/21/16 16:02 Room Air 95 06/21/16 15:43 36.7 89 18 174/102 96 Room Air (Brittanie West PA-C) Physical Exam General Appearance: no apparent distress Eyes: normal inspection, PERRL ENT: hearing grossly normal Neck: supple Respiratory/Chest: lungs clear, no respiratory distress, no accessory muscle use Cardiovascular: regular rate, rhythm, no edema Abdomen: normal bowel sounds, non tender, soft Extremities: no pedal edema, no calf tenderness Neurologic/Psychiatric: alert, normal mood/affect, oriented x 3 Skin: normal color, warm/dry, no rash (Brittanie West PA-C) Laboratory Results Last 24 Hours Test 06/21/16 11:50 06/21/16 11:57 06/21/16 16:25 06/21/16 23:35 Influenza Type A (RT-PCR) Neg for Influ A Influenza Type B (RT-PCR) Neg for Influ B Bedside Glucose 269 mg/dl 248 mg/dl 154 mg/dl Test 06/22/16 05:30 06/22/16 05:38 06/22/16 06:03 White Blood Count 6.10 K/uL Red Blood Count 3.84 M/uL Hemoglobin 10.7 g/dL Hematocrit 32.0 % Mean Corpuscular Volume 83.3 fL Mean Corpuscular Hemoglobin 27.9 pg Mean Corpuscular Hemoglobin Concent 33.4 g/dl RDW Standard Deviation 44.6 fL RDW Coefficient of Variation 14.6 % Platelet Count 156 K/uL Mean Platelet Volume 9.4 fL Sodium Level 146 mmol/L Potassium Level 3.5 mmol/L Chloride Level 113 mmol/L Carbon Dioxide Level 25 mmol/L Anion Gap 8.0 mmol/L Blood Urea Nitrogen 17 mg/dl Creatinine 0.91 mg/dl Est Creatinine Clear Calc Drug Dose 59.5 ml/min Estimated GFR () 75.7 Estimated GFR (Non- 65.3 BUN/Creatinine Ratio 18.7 Random Glucose 142 mg/dl Estimated Average Glucose 171 mg/dl Hemoglobin A1c 7.6 % Calcium Level 7.3 mg/dl Magnesium Level 1.7 mg/dl Thyroid Stimulating Hormone (TSH) 0.538 uIu/ml Bedside Glucose 143 mg/dl (Brittanie West PA-C) Diagnostic Results (BARIUM SWALLOW) ESOPHAGUS CLINICAL HISTORY: ? Distal esophageal teardysphagia COMPARISON STUDY: CT dated 06/21/2016 FLUOROSCOPY TIME: 0.7 minutes. FINDINGS: Mild esophageal irritability. No evidence for extravasation or obstructive change. Gas esophageal junction is unremarkable. IMPRESSION: Mild esophageal irritability. No evidence for extravasation or tear. Electronically signed by: Polo Julio M.D. 06/22/2016 11:03 AM The status of this report is Signed. Draft = Not yet reviewed or approved by Radiologist. Signed = Reviewed and approved by Radiologist. NECK CTA HISTORY: Pain dissection TECHNIQUE: Multiaxial CT images of the neck were performed following the intravenous administration of contrast to evaluate the major cervical vessels. Maximum intensity projection images were also obtained. All measurements were calculated based on NASCET criteria. COMPARISON STUDY: None. FINDINGS: The aortic arch and proximal great vessels are widely patent. There is no significant stenosis, occlusion, or dissection identified within the bilateral common carotid, internal carotid, or vertebral arteries. IMPRESSION: No significant stenosis, occlusion, or dissection identified within the carotid or vertebral arteries. Electronically signed by: Polo Julio M.D. 06/21/2016 6:23 PM The status of this report is Signed. Draft = Not yet reviewed or approved by Radiologist. Signed = Reviewed and approved by Radiologist. HEAD CTA HISTORY: Change in mental status TECHNIQUE: Multiaxial CT images of the head were performed both before and after the intravenous administration of contrast to evaluate the major cerebral vessels. Maximum intensity projection images were also obtained. COMPARISON: None. FINDINGS: There is no mass, hematoma, midline shift, or acute infarct. Visualized intracranial internal carotid arteries, distal vertebral arteries, and basilar artery are widely patent. There is no significant stenosis, occlusion, or aneurysm seen within the bilateral ACAs, MCAs, or care transition mgr. Minimal scattered atherosclerotic change IMPRESSION: Minimal scattered atherosclerotic change. No major stenotic process. Negative CT brain Electronically signed by: Polo Julio M.D. 06/21/2016 6:26 PM The status of this report is Signed. Draft = Not yet reviewed or approved by Radiologist. Signed = Reviewed and approved by Radiologist. (Brittanie West, SLY) Assessment and Plan 66 y/o female, with PMHx of DM, HTN, hypothyroidism, and GERD, who presented to the ED because of intractable nausea and vomiting. Nausea/Vomiting: -Admit med/surg obs -IV NSS + 20 mEq KCl @ 125 ml/hr --Switch fluids to IV 0.45 NSS + 20 mEq KCL @ 75 ml/hr -NPO except sips and ice chips -IV Compazine PRN and Reglan PRN for nausea --Avoid Zofran due to prolonged QT on EKG -Repeat EKG -Rapid flu negative -Follow PRP and CBC Headache: -CTA of neck and head CT unremarkable for any acute events ?Esophageal tear: -Abdominal CT could not exclude. Will follow clinically. No signs/symptoms at admission. -Consulted GI, appreciate recommendations --Barium swallow; no tears identified --EGD -Consulted Thoracic surgery, appreciate recommendations Hypomagnesium: -Mag of 1.7. Replaced with 1 gm Mag Sulfate IV -Check mag tomorrow AM DM: -Hold Metformin and Glimepiride -Sliding insulin scale -BSG AC & HS HTN: -Resume Lisinopril/HCTZ when able to tolerate -Add Hydralazine IV PRN for SBP >170 or DBP >100 Hypothyroidism: -Synthroid IV 66 mcg due to NPO status GERD: -Protonix IV BID DVT prophylaxis: -Early ambulation -Hold chemical therapy due to ?esophageal tear -EVE and SCDs Code Status: -LEVEL I, FULL Dispo: -Pending EGD. -Discharge to home once medically stable. If EGD OK and patient begins to tolerate diet well, ?today or tomorrow. (Brittanie West, PA-C) Reviewed: Pt Seen/Exam by , PARAMJIT Notes, Labs, RAD (Sonja Owens MD) History Agree with above PA HPI/ROS. Pt doing so much better, had a fever last night consistent with a viral illness most likely. CTA head and neck and barium swallow results reviewed with her. She denies any chest pain or abd pain. BPs much improved today (Sonja Owens MD) General Appearance: WD/WN, no apparent distress Eye Exam: bilateral eye normal inspection Ears, Nose, Throat: hearing grossly normal Respiratory: lungs clear, normal breath sounds, no respiratory distress, no accessory muscle use Cardiovascular: regular rate, rhythm, no edema, no gallop, no murmur Gastrointestinal: normal bowel sounds, non tender, soft Extremities: non-tender, normal inspection, no pedal edema, no calf tenderness Neurologic/Psychiatric: alert, normal mood/affect, oriented x 3 Skin Characteristics: normal color, warm/dry (Sonja Owens MD) Assessment/Plan Agree with above PA A/P with the following exceptions/additions: Persistent N/V, Abnormal appearing esophagus and possible intraluminal locule of gas in esophagus on CT Abd/pel- all improved Given neck pain and headache, elevated BPs, minimal response to multiple antiemetics, needed to r/o vertebral artery dissection. Neuro exam normal and CTA head and neck negative, BPs now greatly improved and Gastrograffin swallow neg for esophageal tear-->most likely viral gastroenteritis with dehydration causing posterior headache which is now resolved. Had fever x 1 WBCs mildly elevated at 13k on admission and then improved to normal today. -appreciate GI and CT Surgery consultations -plan for EGD tomorrow to ensure no esophageal mass as was thickened on initial CT -follow labs for lytes -continue IV PPI bid DM Type II -usually fairly well controlled at home until recent prednisone use for bronchitis about 1 month ago and then glucose out of control at home since then, recently increased her glyburide to bid in addition to her metformin. She is not in DKA, pH 7.38, HCO3 was normal Hgba=A1C 7.3% here -agree with plan as above HTN with accelerated HTN-resolved--> intracranial process ruled out -hydralazine prn -restart Zestoretic upon discharge Hypothyroidism-restart po Synthroid upon d/c Proph- EVE Oharas (Sonja Owens MD)
--- NOTE | 2016-06-22 14:39 | SURGERY PROGRESS NOTE ---
DATE: 06/22/2016 DATE: 06/22/2016. Ms. Rubio was seen today. She feels "much better." She has had no vomiting overnight. She has less pain along her costal margins. She did spike a fever to 38.3. Her heart rate also went up with that, although she is down to 37.0 this morning and her pulse 83. Her room air sat is 96%. Her lungs sound fine. Her abdomen is soft. She does have bowel sounds. She is hungrier than she was yesterday. Upon evaluation of her lower extremities she has no peripheral edema. She has good pulses and negative Homans sign bilaterally. Neurologically she is intact. I reviewed her blood work and her white count has now fallen to 6100 with a hemoglobin of 10.7. This has fallen considerably from 13.5, however her BUN and creatinine have not changed appreciably. There may be some mild hemodilution. I reviewed the barium swallow and I see no evidence of extravasation. Also, surprisingly, after reviewing her CT scan with the radiologist surprised to see that there was no evidence of an intrinsic mass. There was also no hangup at all. I have discussed this case with Dr. Titi Carrington and Dr. Carrington is going to perform an EGD tomorrow. A couple of the possibility here could be a leiomyoma type mass in the wall of the esophagus. Another possibility is the patient had herniation of her stomach which has now resolved and it could explain her resolution of symptoms and our barium study. The EGD will be helpful.
--- NOTE | 2016-06-22 15:24 | Gastroenterology Progress Note ---
Progress Note Date of Service: Jun 22, 2016 Subjective Pt evaluation today including: conversation w/ patient, physical exam, review of studies, review of inpatient medication list Patient reports significant symptom improvement. She is no longer having any nausea or vomiting and has eaten a clear liquid lunch without difficulty. No fevers. CTA without intrinsic mass and barium swallow without evidence of an esophageal mucosal tear. Continues IV Protonix 40 mg BID. Review of Systems Constitutional: + see HPI Abdomen: + see HPI Psych: No problem reported Medications Current Inpatient Medications Medications (Trade) Dose Ordered Sig/Ismael Route Start Time Stop Time Status Last Admin Dose Admin Ioversol (Optiray 320) 100 ml UD PRN IV 06/21/16 07:00 06/25/16 06:59 Al Hydrox/Mg Hydrox/Simethicone (Maalox Max Susp) 15 ml Q4H PRN PO 06/21/16 08:45 07/21/16 08:44 Magnesium Hydroxide (Milk Of Magnesia Susp) 30 ml Q6H PRN PO 06/21/16 08:45 07/21/16 08:44 Polyethylene 17 gm 17 gm DAILY PRN PO 06/21/16 08:45 07/21/16 08:44 Prochlorperazine Edisylate/Syringe (Compazine Inj/ Syringe) 10 ml @ 5 mls/min Q6H PRN IV 06/21/16 08:45 07/21/16 08:44 06/21/16 16:53 5 MLS/MIN Hydralazine HCl (HydrALAZINE INJ) 10 mg Q8H PRN IV. 06/21/16 08:45 07/21/16 08:44 06/21/16 16:53 10 MG Glucose (Glucose 40% Gel) 15-30 GRAMS 15 GRAMS... UD PRN PO 06/21/16 09:30 07/21/16 09:29 Glucose (Glucose Chew Tab) 4-8 Tablets 4 Tabl... UD PRN PO 06/21/16 09:30 07/21/16 09:29 Dextrose (Dextrose 50% 50ML Syringe) 25-50ML OF 50% DW IV FOR... UD PRN IV 06/21/16 09:30 07/21/16 09:29 Glucagon 1 mg 1 mg UD PRN SQ 06/21/16 09:30 07/21/16 09:29 Pantoprazole Sodium/Syringe (Protonix Inj/ Syringe) 10 ml @ 5 mls/min BID@0900,2100 IV 06/21/16 11:00 07/21/16 10:59 06/22/16 09:10 5 MLS/MIN Metoclopramide HCl 10 mg 10 mg Q6H PRN IV 06/21/16 17:00 07/21/16 16:59 06/21/16 20:36 10 MG Levothyroxine Sodium/Syringe (Synthroid Inj/ Syringe) 3.3 ml @ 2 mls/min DAILY@09 IV 06/22/16 09:00 07/22/16 08:59 06/22/16 09:10 2 MLS/MIN Ioversol (Optiray 320) 125 ml UD PRN IV 06/21/16 17:45 06/25/16 17:44 Insulin Aspart SLIDING SCALE G... Q6 SC 06/22/16 00:00 07/22/16 00:00 Potassium Chloride/Sodium Chloride (06/21 Nss + 20meq KCl 1000ml) 1,000 ml @ 75 mls/hr [id number] IV 06/22/16 08:45 07/22/16 08:44 06/22/16 09:10 75 MLS/HR Objective Vital Signs Date Time Temp Pulse Resp B/P Pulse Ox O2 Delivery O2 Flow Rate FiO2 06/22/16 08:48 Room Air 06/22/16 07:24 37.0 83 18 114/70 96 Room Air 06/22/16 07:16 37.6 106 18 126/76 97 Room Air 95 06/22/16 00:53 37.6 06/21/16 23:54 38.3 106 18 126/76 97 Room Air 06/21/16 18:30 98 145/79 06/21/16 16:02 Room Air 95 06/21/16 15:43 36.7 89 18 174/102 96 Room Air Physical Exam General Appearance: no apparent distress Eyes: EOMI ENT: hearing grossly normal Neck: supple Respiratory/Chest: lungs clear, normal breath sounds, no respiratory distress Cardiovascular: regular rate, rhythm, no gallop, no murmur Abdomen: normal bowel sounds, non tender, soft Neurologic/Psych: alert, normal mood/affect, oriented x 3 Laboratory Results Last 24 Hours Test 06/21/16 16:25 06/21/16 23:35 06/22/16 05:30 06/22/16 05:38 Bedside Glucose 248 mg/dl 154 mg/dl White Blood Count 6.10 K/uL Red Blood Count 3.84 M/uL Hemoglobin 10.7 g/dL Hematocrit 32.0 % Mean Corpuscular Volume 83.3 fL Mean Corpuscular Hemoglobin 27.9 pg Mean Corpuscular Hemoglobin Concent 33.4 g/dl RDW Standard Deviation 44.6 fL RDW Coefficient of Variation 14.6 % Platelet Count 156 K/uL Mean Platelet Volume 9.4 fL Sodium Level 146 mmol/L Potassium Level 3.5 mmol/L Chloride Level 113 mmol/L Carbon Dioxide Level 25 mmol/L Anion Gap 8.0 mmol/L Blood Urea Nitrogen 17 mg/dl Creatinine 0.91 mg/dl Est Creatinine Clear Calc Drug Dose 59.5 ml/min Estimated GFR () 75.7 Estimated GFR (Non- 65.3 BUN/Creatinine Ratio 18.7 Random Glucose 142 mg/dl Estimated Average Glucose 171 mg/dl Hemoglobin A1c 7.6 % Calcium Level 7.3 mg/dl Magnesium Level 1.7 mg/dl Thyroid Stimulating Hormone (TSH) 0.538 uIu/ml Test 06/22/16 06:03 06/22/16 11:16 Bedside Glucose 143 mg/dl 161 mg/dl Assessment and Plan Patient is a 66 year old female admitted with nausea and vomiting (now resolved ) as well as abnormal CT imaging suggestive of distal esophageal and proximal gastric wall thickening but no evidence of mass or esophageal tear on subsequent imaging. 1. Clear liquid diet today. 2. NPO after midnight. 3. EGD tomorrow with Dr. Carrington to exclude any insidious pathology. 4. Continue Protonix 40 mg IV BID. 5. Additional recommendations pending results of testing.
[2016-06-22] MEDS ORDERED: NURSING VERBAL MED ORDER ONE (15:30)
[2016-06-22 15:53] VITALS: BP 123/74; PULSE 84; TEMP 36.7; O2SAT 95
[2016-06-23 00:31] VITALS: BP 130/76; PULSE 73; TEMP 37.2; O2SAT 96
[2016-06-23 06:28] VITALS: BP 130/76; PULSE 73; TEMP 37.2; O2SAT 96
[2016-06-23 08:16] LABS: MEAN CELL VOLUME 82.3 fL (80-100); MEAN CORPUSCULAR HEMOGLOBIN 27.8 pg (25-34); MEAN CORPUSCULAR HGB CONC 33.8 g/dl (32-36); MEAN PLATELET VOLUME 9.1 fL (7.4-10.4); PLATELET COUNT 142 K/uL (130-400); RED BLOOD COUNT 3.89 M/uL (4.2-5.4); WHITE BLOOD COUNT 4.65 K/uL (4.8-10.8)
[2016-06-23] MEDS: PANTOprazole INJ 40 MG in SYRINGE 0 ML IV SCH (08:25)
[2016-06-23] MEDS: LEVOTHYROXINE SODIUM IV SCH (08:25)
[2016-06-23] MEDS: INSULIN ASPART 100 UNITS/ML 3 ML PEN SC SCH ×2 (08:25→12:29)
[2016-06-23 08:45] LABS: BUN/CREATININE RATIO 10.2 (10-20); CALCIUM 7.8 mg/dl (8.5-10.1); CREATININE 0.66 mg/dl (0.60-1.20); MAGNESIUM 2.2 mg/dl (1.8-2.4); POTASSIUM 3.6 mmol/L (3.5-5.1)
[2016-06-23 08:56] VITALS: BP 145/91; PULSE 79; TEMP 36.7; O2SAT 95
--- NOTE | 2016-06-23 09:38 | SURGERY PROGRESS NOTE ---
DATE: 06/23/2016 Ms. Rubio was seen today on 06/23/2016. She is sitting up in bed reading the paper. She denies abdominal pain. She is quite hungry. She has been kept n.p.o. as she is going to undergo an upper endoscopy by Dr. Carrington today. Her labs look quite good. Sugars have been well controlled 120-150. The hemoglobin is stable at 10.8. Her abdomen is soft, nontender. Her lungs are clear. ASSESSMENT AND PLAN: Distal esophageal abnormality. I am quite curious to see what the upper endoscopy shows that is on the schedule for later today.
[2016-06-23] MEDS: SODIUM CHLOR 0.45% + 20MEQ KCL 1,000 ML IV SCH (09:50)
[2016-06-23 11:41] VITALS: BP 149/86; PULSE 79; TEMP 36.9; O2SAT 96
[2016-06-23] MEDS ORDERED: MIDAZOLAM HCL 1 MG/ML 2ML VIAL ONE (12:11)
[2016-06-23] MEDS ORDERED: ONDANSETRON INJ 2 MG/ML 2 ML VIAL ONE (12:12)
[2016-06-23] MEDS ORDERED: LIDOCAINE HCL 2% 2 ML VIAL (20MG/ML) ONE (12:12)
[2016-06-23] MEDS ORDERED: PROPOFOL IV EMULSION 10 MG/ML 20 ML VIAL IV ONE (12:12)
--- NOTE | 2016-06-23 13:37 | Anesthesiology Progress Note ---
Anesthesia Post Op Note Date & Time Jun 23, 2016 at 13:36 Vital Signs Pain Intensity: 0 Vital Signs Past 12 Hours Date Time Temp Pulse Resp B/P Pulse Ox O2 Delivery O2 Flow Rate FiO2 06/23/16 13:15 58 20 115/60 98 Room Air 06/23/16 13:00 72 18 116/54 98 Room Air 06/23/16 12:45 75 18 110/63 96 Room Air 06/23/16 12:02 36.9 68 18 149/86 96 Room Air 06/23/16 11:41 36.9 79 18 149/86 96 Room Air 95 06/23/16 08:56 36.7 79 18 145/91 95 Room Air 06/23/16 07:56 Room Air 06/23/16 06:28 37.2 73 20 130/76 96 Room Air 95 Notes Mental Status: alert / awake / arousable Nausea / Vomiting: adequately controlled Pain: adequately controlled Airway Patency, RR, SpO2: stable & adequate BP & HR: stable & adequate Hydration State: stable & adequate Anesthetic Complications: no major complications apparent
[2016-06-23] MEDS ORDERED: PANT40TA PO ×2 (14:43→16:06)
--- NOTE | 2016-06-23 14:47 | Discharge Instructions ---
Discharge Instructions Admission Reason for Admission: Vomiting Discharge Discharge Diagnosis / Problem: Nausea/vomiting, gastritis,hiatal hernia Discharge Goals Goal(s): Improve disease control, Therapeutic intervention Activity Recommendations Activity Limitations: resume your previous activity . Instructions / Follow-Up Instructions / Follow-Up You will need to follow up with Dr. Carrington from GI for your gastritis, and results of your biopsies of the stomach. Please follow up wih Dr. Soriano/PCP within 1 week. Take the Protonix once daily x 2 weeks at least until seen by GI. If you develop recurrent nausea/vomiting or chest pain, please come immediately back to the ER. Current Hospital Diet Patient's current hospital diet: Regular Diet Discharge Diet Recommended Diet: Diabetes Type 2 Diet Procedures Procedures Performed: CT Angiogram head and neck Chest and abdomen xrays CT Abdomen/pelvis Esophageal/Gastrograffin swallow xray EGD Pending Studies Studies pending at discharge: no Laboratory Results Hemoglobin A1c Test 06/22/16 05:38 Range/Units Estimated Average Glucose 171 mg/dl Hemoglobin A1c 7.6 H 4.5-5.6 % Medical Emergencies . Who to Call and When: Medical Emergencies: If at any time you feel your situation is an emergency, please call 911 immediately. . Non-Emergent Contact Non-Emergency issues call your: Primary Care Provider Call Non-Emergent contact if: temperature is above 101, your pain is unusual for you, your pain is concerning you, you have any medication questions for nausea/vomiting as above . . "Provider Documentation" section prepared by Sonja Owens. VTE Core Measure Inpt VTE Proph given/why not?: Felicia Benjamin, SUSI's
[2016-06-23 15:04] VITALS: BP 144/89; PULSE 69; TEMP 36.4; O2SAT 98
--- NOTE | 2016-06-23 15:08 | Discharge Summary ---
Discharge Summary Admission Date: Jun 21, 2016 at 09:00 Discharge Date: Jun 23, 2016 Discharge Disposition: Home Principal Diagnosis: Nausea and vomiting Problems/Secondary Diagnoses: 1. DM 2. Esophageal lesion identified on CT 3. Gastritis 4. Hiatal hernia Immunizations: Have You Had Influenza Vaccine: Unknown Procedures: CHEST AND ABDOMEN 2 VIEWS HISTORY: Generalized abdominal pain. Nausea. Vomiting. COMPARISON: None. FINDINGS: The heart is normal in size. No pleural effusions. No pneumothorax. The right lung is clear. There is a small cluster of nodular densities within the left upper lobe with the largest measuring 4 mm. Given the increased density these favor calcifications. No focal lung consolidations. Prior cholecystectomy. No pneumoperitoneum. No pneumatosis. No renal calculi. There are few small fluid levels within the right upper quadrant likely within the hepatic flexure of the colon. There is a relative paucity of small bowel gas which limits evaluation for bowel obstruction. However, there are no dilated loops of small bowel identified. IMPRESSION: 1. No acute cardiopulmonary process. 2. No evidence for small bowel obstruction. 3. Small fluid levels within the colon which can be seen in the setting of a gastroenteritis. Electronically signed by: Guillermo Canas M.D. 06/21/2016 7:10 AM The status of this report is Signed. Draft = Not yet reviewed or approved by Radiologist. Signed = Reviewed and approved by Radiologist. CT OF THE ABDOMEN AND PELVIS WITH CONTRAST CLINICAL HISTORY: Abdominal pain and vomiting. Evaluate for small bowel obstruction. COMPARISON STUDY: Chest radiograph with abdominal series June 21, 2016. TECHNIQUE: Following IV administration of 119 mL of Optiray-320, axial images of the abdomen and pelvis were obtained from the lung bases to the proximal femurs. Images were reviewed in the axial, sagittal, and coronal planes. IV contrast was administered without complication. CT DOSE: 570.57 mGy.cm FINDINGS: Visualized portions of the lower chest demonstrate a small hiatal hernia. There is apparent wall thickening of the distal esophagus and proximal stomach. This may be due to underdistention. One image 34 of 461, there is a locule of gas along the left lateral aspect of the distal esophagus/proximal stomach. There is mild dilatation of the common bile duct status post cholecystectomy. There may be fatty infiltration of the liver. The spleen, adrenal glands and kidneys are unremarkable. There is no evidence for a bowel obstruction. The appendix is not visualized. No bowel wall thickening is identified. There is no pneumatosis, free air or portal venous gas. The colon is mildly fluid-filled. Sigmoid diverticulosis is noted without evidence for acute diverticulitis. An old mild T12 compression deformity is present. IMPRESSION: 1. Small hiatal hernia with apparent wall thickening of the distal esophagus/proximal stomach. This may be due to underdistention; however, esophagitis could appear similar. In addition, there is a locule of gas along the left lateral wall of the distal esophagus. This may be within a fold however extraluminal gas could appear similar. An esophageal tear would be difficult to exclude on this exam. Close clinical follow-up is recommended. If this patient has worsening chest/upper abdominal pain, a short-term follow-up chest CT with oral contrast is recommended. 2. No evidence for a bowel obstruction. 3. Mild biliary ductal dilatation. This is likely due to prior cholecystectomy but could be correlated with obstructive liver function tests. Electronically signed by: Rafi Luther M.D. 06/21/2016 8:02 AM The status of this report is Signed. Draft = Not yet reviewed or approved by Radiologist. Signed = Reviewed and approved by Radiologist. HEAD CTA HISTORY: Change in mental status TECHNIQUE: Multiaxial CT images of the head were performed both before and after the intravenous administration of contrast to evaluate the major cerebral vessels. Maximum intensity projection images were also obtained. COMPARISON: None. FINDINGS: There is no mass, hematoma, midline shift, or acute infarct. Visualized intracranial internal carotid arteries, distal vertebral arteries, and basilar artery are widely patent. There is no significant stenosis, occlusion, or aneurysm seen within the bilateral ACAs, MCAs, or color maker dyer. Minimal scattered atherosclerotic change IMPRESSION: Minimal scattered atherosclerotic change. No major stenotic process. Negative CT brain Electronically signed by: Polo Julio M.D. 06/21/2016 6:26 PM The status of this report is Signed. Draft = Not yet reviewed or approved by Radiologist. Signed = Reviewed and approved by Radiologist. NECK CTA HISTORY: Pain dissection TECHNIQUE: Multiaxial CT images of the neck were performed following the intravenous administration of contrast to evaluate the major cervical vessels. Maximum intensity projection images were also obtained. All measurements were calculated based on NASCET criteria. COMPARISON STUDY: None. FINDINGS: The aortic arch and proximal great vessels are widely patent. There is no significant stenosis, occlusion, or dissection identified within the bilateral common carotid, internal carotid, or vertebral arteries. IMPRESSION: No significant stenosis, occlusion, or dissection identified within the carotid or vertebral arteries. Electronically signed by: Polo Julio M.D. 06/21/2016 6:23 PM The status of this report is Signed. Draft = Not yet reviewed or approved by Radiologist. Signed = Reviewed and approved by Radiologist. (BARIUM SWALLOW) ESOPHAGUS CLINICAL HISTORY: ? Distal esophageal teardysphagia COMPARISON STUDY: CT dated 06/21/2016 FLUOROSCOPY TIME: 0.7 minutes. FINDINGS: Mild esophageal irritability. No evidence for extravasation or obstructive change. Gas esophageal junction is unremarkable. IMPRESSION: Mild esophageal irritability. No evidence for extravasation or tear. Electronically signed by: Polo Julio M.D. 06/22/2016 11:03 AM The status of this report is Signed. Draft = Not yet reviewed or approved by Radiologist. Signed = Reviewed and approved by Radiologist. EGD FINDINGS 1. Normal esophagus 2. Gastritis- biopsied 3. Medium-sized hiatal hernia 4. Normal duodenum Consultations: Thoracic surgery- Dr. Villafuerte [facility]- [facility] and Dr. Carrington (Brittanie West, PA-C) Medication Reconciliation New Medications: Pantoprazole Sodium (Protonix) 40 Mg Tab 40 MG PO QAM, #30 TAB Continued Medications: Glimepiride (Glimepiride) 2 Mg Tab 2 MG PO BID Levothyroxine Sodium (Synthroid) 112 Mcg Tab 112 MCG PO DAILY Lisinopril/Hctz (Zestoretic 20MG/12.5MG) Tab 1 TAB PO DAILY Meclizine HCl (Meclizine 25) 25 Mg Tab 25 MG PO TID PRN for Dizziness or Vertigo Metformin Hcl (Glucophage) 500 Mg Tab 500 MG PO BID Discontinued Medications: Omeprazole (Prilosec) 20 Mg Capcr 20 MG PO DAILY Referrals At Discharge Follow up Referrals: Family Practice Referral - Within 1 Week with Jose Antonio Soriano M.D. Respiratory Therapy Technician Referral - Within 2 Weeks with Titi Carrington D.O. Discharge Exam Review of Systems: Constitutional: No chills, No fatigue, No fever, No sweats, No weakness Respiratory: No cough, No hemoptysis, No shortness of breath Cardiovascular: No chest pain, No edema, No palpitations Abdomen: No constipation, No diarrhea, No nausea, No pain, No vomiting Musculoskeletal: No calf pain, No joint pain, No muscle pain Genitourinary - Female: No dysuria, No hematuria Neurologic: No numbness/tingling, No weakness Psychiatric: No anxiety, No depression symptoms Hematologic / Lymphatic: No abnormal bleeding/bruising Integumentary: No itch, No new/changing skin lesions, No rash Physical Exam: General Appearance: no apparent distress Eyes: normal inspection, PERRL ENT: hearing grossly normal Neck: supple Respiratory/Chest: lungs clear, no respiratory distress, no accessory muscle use Cardiovascular: regular rate, rhythm, no edema, normal peripheral pulses Abdomen / GI: normal bowel sounds, non tender, soft Extremities: no calf tenderness, no pedal edema Neurologic/Psychiatric: alert, normal mood/affect, oriented x 3 Skin: normal color, warm/dry, no rash (Brittanie West, SLY) Hospital Course 66 y/o female, with PMHx of DM, HTN, hypothyroidism, and GERD, who presented to the ED because of intractable nausea and vomiting. Nausea/Vomiting: -Admit med/surg obs -IV NSS + 20 mEq KCl @ 125 ml/hr --Switch fluids to IV 0.45 NSS + 20 mEq KCL @ 75 ml/hr -NPO except sips and ice chips --Advanced diet, tolerated well. (06/23) -IV Compazine PRN and Reglan PRN for nausea --Avoid Zofran due to prolonged QT on EKG -Repeat EKG -Rapid flu negative -Follow PRP and CBC Headache: -CTA of neck and head CT unremarkable for any acute events ?Esophageal tear: -Abdominal CT could not exclude. Will follow clinically. No signs/symptoms at admission. -Consulted GI, appreciate recommendations --Barium swallow; no tears identified --EGD; normal esophagus, hiatal hernia, gastritis- biopsied, normal duodenum -Consulted Thoracic surgery, appreciate recommendations Hypomagnesium: -Mag of 1.7. Replaced with 1 gm Mag Sulfate IV -Check mag tomorrow AM DM: -Hold Metformin and Glimepiride --Resume at discharge -Sliding insulin scale -BSG AC & HS HTN: -Resume Lisinopril/HCTZ when able to tolerate --Resume at discharge -Add Hydralazine IV PRN for SBP >170 or DBP >100 Hypothyroidism: -Synthroid IV 66 mcg due to NPO status --Resume oral medication at discharge GERD/Gastritis: -Protonix IV BID -Patient was prescribed Protonix 40 mg PO daily DVT prophylaxis: -Early ambulation -Hold chemical therapy due to ?esophageal tear -EVE and SCDs Code Status: -LEVEL I, FULL Dispo: -Discharge to home Total Time Spent: Greater than 30 minutes This includes examination of the patient, discharge planning, medication reconciliation, and communication with other providers. (Brittanie West, SLY) Discharge Instructions Please refer to the electronic Patient Visit Report (Discharge Instructions) for additional information. (Brittanie West PA-C) Follow-Up Follow-up with PCP within 1 week Follow-up with Dr. Carrington within 2 weeks Please follow-up/keep all of your subspecialty appointments. (Brittanie West PA-C) Additional Copies To Jose Antonio Soriano M.D. Reviewed: Pt Seen/Exam by Me (Sonja Owens MD) All Other Systems: Reviewed and Negative (Sonja Owens MD) General Appearance: WD/WN, no apparent distress Respiratory: lungs clear, normal breath sounds, no respiratory distress Gastrointestinal: normal bowel sounds, non tender, soft, no organomegaly Extremities: normal inspection, no pedal edema, no calf tenderness Neurologic/Psychiatric: alert, normal mood/affect Skin Characteristics: normal color, warm/dry (Sonja Owens MD) Assessment/Plan Agree with above PA Discharge SUmmary with the following exceptions/additions: Persistent N/V, Abnormal appearing esophagus and possible intraluminal locule of gas in esophagus on CT Abd/pel- all improved Given neck pain and headache, elevated BPs, minimal response to multiple antiemetics, needed to r/o vertebral artery dissection. Neuro exam normal and CTA head and neck negative, BPs now greatly improved and Gastrograffin swallow neg for esophageal tear-->most likely viral gastroenteritis with dehydration causing posterior headache which is now resolved. Had fever x 1 WBCs mildly elevated at 13k on admission and then improved to normal today. -appreciate GI and CT Surgery consultations - EGD as above showed no esophageal mass as was thickened on initial CT -continue PPI x 2 weeks, f/u with GI for biopsy results DM Type II -usually fairly well controlled at home until recent prednisone use for bronchitis about 1 month ago and then glucose out of control at home since then, recently increased her glyburide to bid in addition to her metformin. She is not in DKA, pH 7.38, HCO3 was normal Hgba=A1C 7.3% here -agree with plan as above HTN with accelerated HTN-resolved--> intracranial process ruled out -hydralazine prn -restart Zestoretic upon discharge Hypothyroidism-restart po Synthroid upon d/c Proph- SUSIs, EVEs (Sonja Owens MD)
[2016-06-23 15:39] VITALS: BP 144/89; PULSE 69; TEMP 36.4; O2SAT 98
== END 2016-06-23 16:15 | disposition home or self-care (01) ==
LOC: ENRESERVDT → ENRESERVTM → EDBD 06:00 → C.EDA 06:02 → C.MS2W 09:00
PROVIDERS: ADMIT Family Medicine; ATTEND Family Medicine
DX: R11.2 Nausea with vomiting, unspecified (principal); K29.70 Gastritis, unspecified, without bleeding; K44.9 Diaphragmatic hernia without obstruction or gangrene; E83.42 Hypomagnesemia; E13.10 Other specified diabetes mellitus with ketoacidosis without coma; I10 Essential (primary) hypertension; E03.9 Hypothyroidism, unspecified; K21.9 Gastro-esophageal reflux disease without esophagitis; Z88.5 Allergy status to narcotic agent; Z90.49 Acquired absence of other specified parts of digestive tract

== ENCOUNTER → 2016-12-29 | Outpatient (CLI) | payer OTHER ==
[~2016-12-29] MED LIST: AMR2 PO; GLC/500 PO; LEVO112T2 PO; LISI-787 PO; MECL-91 PO; PANT40TA PO
== END | disposition home or self-care (01) ==
LOC: C.RDSM 12:00
PROVIDERS: ATTEND Orthopaedic Surgery Sports Medicine
DX: R52 Pain, unspecified (principal)

== ENCOUNTER → 2017-01-19 | Outpatient (CLI) | payer OTHER ==
--- NOTE | 2017-01-24 16:07 | MAMMOGRAPHY REPORT ---
BILATERAL DIGITAL SCREENING MAMMOGRAM TOMOSYNTHESIS WITH CAD: 01/19/2017 CLINICAL HISTORY: Routine screening. Patient has no complaints. TECHNIQUE: Breast tomosynthesis in addition to standard 2D mammography was performed. Current study was also evaluated with a Computer Aided Detection (CAD) system. COMPARISON: Comparison is made to exam dated: 01/10/2013 mammogram - [facility]. BREAST COMPOSITION: There are scattered areas of fibroglandular density in both breasts. FINDINGS: There are stable benign groupings of rim calcifications in the right breast. No suspicious mass, architectural distortion or cluster of suspicious microcalcifications is seen. IMPRESSION: ACR BI-RADS CATEGORY 1: NEGATIVE There is no mammographic evidence of malignancy. A 1 year screening mammogram is recommended. The pa tient will receive written notification of the results. Approximately 10% of breast cancers are not detected with mammography. A negative mammographic report should not delay biopsy if a clinically suggestive mass is present. Doris Mercado M.D. ay/:01/24/2017 15:57:21 Partner Cco: Mirian HANSEN(Maria)(Priya), [facility] letter sent: Normal 1/2 BI-RADS Code: ACR BI-RADS Category 1: Negative
== END | disposition home or self-care (01) ==
LOC: C.MAMM 11:17
PROVIDERS: ATTEND Family Medicine
DX: Z12.31 Encounter for screening mammogram for malignant neoplasm of breast (principal)

== ENCOUNTER 2024-02-22 13:10 | Observation (INO) ==
[2024-02-22 13:41] LABS: Basophils # (auto) 0.06 K/uL (0.00-0.20); Basophils % (auto) 0.8 %; Eosinophils # (auto) 0.14 K/uL (0.00-0.50); Hematocrit (blood only) 36.2 % (37.0-47.0); Immature Granulocytes # (auto) 0.01 K/uL (0.01-0.20); Immature Granulocytes % (auto) 0.1 %; Lymphocytes # (auto) 1.85 K/uL (1.20-3.40); Lymphocytes % (auto) 26.1 %; Mean Corpuscular Hemoglobin 25.3 pg (25.0-34.0); Mean Corpuscular Hgb Conc 33.1 g/dL (32.0-36.0); Mean Corpuscular Volume 76.2 fL (80.0-100.0); Mean Platelet Volume 9.1 fL (9.4-12.4); Monocytes # (auto) 0.51 K/uL (0.11-0.59); Monocytes % (auto) 7.2 %; Neutrophils # (auto) 4.51 K/uL (1.40-6.50); Neutrophils % (auto) 63.8 %; Platelet Count 291 K/uL (130-400); RDW Coefficient of Variation 15.7 % (11.5-14.5); RDW Standard Deviation 42.9 fL (36.4-46.3); Red Blood Count 4.75 M/uL (4.20-5.40); White Blood Count 7.08 K/ul (4.8-10.8)
--- NOTE | 2024-02-22 13:43 | Emergency Department Note ---
Impression & Plan Near syncope, Dysrhythmia, Hypomagnesemia ED Provider Note HISTORY OF PRESENT ILLNESS: Patient is a 73-year-old female presenting with near syncopal episodes. Patient reports that she went to her primary care provider's office today and was found to have frequent PVCs on EKG and was referred to the emergency department. Patient reports that over the weekend in the last few days she has been having recurrent episodes of feeling very lightheaded and feeling like she is going to pass out. She reports that 2 days ago she had an episode in which she felt lightheaded and her legs gave out from underneath her and then she vomited. Reports that 3 days ago she had a similar episode in which she felt lightheaded and then vomited. Patient had 2 episodes of feeling lightheaded and very weak like she was going to pass out while at clinic for her appointment today. Denies any chest pain or shortness of breath with the episodes. She states that she got diaphoretic during both of these episodes. Denies any DVT or PE history. Denies any history of cardiac stents. She is not on any anticoagulation or antiplatelet therapy. Denies any recent changes to medications. Denies any recent fevers or chills or recent sick contact exposures. Denies any recent changes to medications. ROS: as above PHYSICAL EXAM: Constitutional: Patient appears in no acute distress. HENT: Head: Normocephalic and atraumatic. Eyes: EOMI, PERRL Mouth/Throat: Mucous membranes moist. Neck: Trachea midline. Neck supple. Cardiovascular: RRR, No murmurs, rubs or gallops. Intact distal pulses. Pulmonary/Chest: No respiratory distress. Breath sounds clear and equal bilaterally. No wheezes or rales. Abdominal: Abdomen soft, no tenderness, rebound or guarding. Musculoskeletal: No edema, tenderness or deformity noted. Skin: Warm and dry. No rash, erythema, pallor or cyanosis Psychiatric: Appropriate mood and affect for situation. Neurological: Alert and keenly responsive. CN II-XII grossly intact, moving all extremities equally and fully. MDM: - Vitals signs showed hypertension - History obtained via patient. History as above. - Chronic conditions affecting care: DM-2; HTN; hypothyroidism; GERD - Differential diagnoses include, but are not limited to: ACS; dysrhythmia; electrolyte abnormality; PE; pneumonia - Order placed for continuous cardiac monitoring. At this time, monitor showed rate of 70 bpm with normal sinus rhythm, per my interpretation. - External medical records reviewed. - EKG interpreted by myself showed normal sinus rhythm. Rate 92 bpm. Patient having significant disease. QT 392. No acute ischemic changes. - Laboratory workup interpreted by myself showed normal WBC; normal PT/INR; stable electrolytes other than slight hypomagnesemia (Mg 1.5); normal troponin; normal lipase - CXR negative for pneumonia, per my interpretation - UA negative for infection - Patient given 1g IV magnesium for electrolyte replacement. - Discussed results with the patient. Given her recurrent episodes of near syncope and no formal cardiac workup in the past, will admit to hospital service. - Discussion was had with case filler about patient's case and need for admission - Hospitalist, Dr. Cardona, consulted for admission - Patient admitted to [facility] for further evaluation and management. ASSESSMENT AND PLAN: Diagnosis: Near syncope; dysrhythmia; hypomagnesemia Plan: admit Past Med/Surg History Problem List (Updated 02/22/24 @ 16:36 by Chapis Miles MD) Hypomagnesemia (Acute) Dysrhythmia (Acute) Near syncope (Acute) Diabetes mellitus (Chronic) Acute gastritis Encounter for pre-operative examination Medical History Diabetes mellitus, type 2 GERD (gastroesophageal reflux disease) Hypertension Hypothyroidism Nausea and vomiting after administration of anesthetic agent Surgical History H/O ovarian cystectomy History of adenoidectomy History of appendectomy History of arthroscopy left knee x4 History of cataract surgery RT History of section x2 History of cholecystectomy History of colonoscopy History of dilatation and curettage History of esophagogastroduodenoscopy (EGD) History of tonsillectomy History of tooth extraction Family History Other Family history not known due to adoption Social History Smoking Status: Never smoker Second Hand Exposure: No; Do You Dip or Chew Tobacco: No; Hx Alcohol Use: Yes Alcohol type: wine Preferred Language: Gambian Communication Ability: Effective Backend Java Developer Required: No Beliefs That Will Affect Care: None Current Living Situation: Spouse Feels Safe at Home: Yes Assistive Devices: Denture - Upper and Glasses Allergies Allergies Allergy/AdvReac Type Severity Reaction Status Date / Time codeine Allergy Intermediate SEVERE Verified 10/20/21 23:16 SHAKES/TREMORS levofloxacin Allergy Intermediate SWELLING Verified 10/20/21 23:16 OF FACE/THROAT metformin Allergy Intermediate ENDLESS Verified 10/20/21 23:16 DIARRHEA fentanyl Allergy Unknown UNKNOWN Verified 10/20/21 23:16 hydromorphone Allergy Unknown UNKNOWN Verified 10/20/21 23:16 oxycodone Allergy Unknown UNKNOWN Verified 10/20/21 23:16 Home Meds Home Medications Medication Instructions Recorded Confirmed cholecalciferol (vitamin D3) 50 50 mcg PO QAM 02/09/21 10/20/21 mcg (2,000 unit) capsule (Vitamin D3) glimepiride 4 mg tablet 4 mg PO QAM 02/09/21 10/20/21 levothyroxine 112 mcg tablet 112 mcg PO QAM 02/09/21 10/20/21 lisinopril 20 1 tab PO QAM 02/09/21 10/20/21 mg-hydrochlorothiazide 12.5 mg tablet meclizine 25 mg tablet 25 mg PO TID PRN Vertigo 02/09/21 10/20/21 metformin 500 mg tablet 500 mg PO TIDM 02/09/21 10/20/21 pantoprazole 40 mg tablet,delayed 40 mg PO QAM 02/09/21 10/20/21 release Results & Data (ED) Vital Signs Vital Signs - 24 hr 02/22/24 13:17 02/22/24 13:27 02/22/24 13:28 Temperature 36.8 C Temperature Source Oral Pulse Rate 85 69 Pulse Rate [Right Finger] 81 Respiratory Rate 18 18 Respiratory Effort / Characteristics Non-Labored Spontaneous Non-Labored Spontaneous Respiratory Depth Normal Blood Pressure 159/70 H Blood Pressure [Right Arm] 159/70 H Blood Pressure Mean 99 Blood Pressure Mean [Right Arm] 99 Blood Pressure Position Sitting Blood Pressure Position [Right Arm] Lying Pulse Oximetry 97 97 Oxygen Delivery Method Room Air Sepsis Recent Fever Within 48 Hours No Sepsis New/Unexplained Change in Mental Status No Sepsis Action Taken by Nursing No Action Required Laboratory Data 02/22/24 13:24 02/22/24 13:24 Lab Results 02/22/24 02/22/24 Range/Units 13:24 14:02 WBC 7.08 (4.8-10.8) K/ul RBC 4.75 (4.20-5.40) M/uL Hgb 12.0 (12.0-16.0) g/dl Hct 36.2 L (37.0-47.0) % MCV 76.2 L (80.0-100.0) fL MCH 25.3 (25.0-34.0) pg MCHC 33.1 (32.0-36.0) g/dL RDW Std Deviation 42.9 (36.4-46.3) fL RDW Coeff of Sabi 15.7 H (11.5-14.5) % Plt Count 291 (130-400) K/uL MPV 9.1 L (9.4-12.4) fL Immature Gran % (Auto) 0.1 % Neut % (Auto) 63.8 % Lymph % (Auto) 26.1 % Forest % (Auto) 7.2 % Eos % (Auto) 2.0 % Baso % (Auto) 0.8 % Neut # (Auto) 4.51 (1.40-6.50) K/uL Lymph # (Auto) 1.85 (1.20-3.40) K/uL Forest # (Auto) 0.51 (0.11-0.59) K/uL Eos # (Auto) 0.14 (0.00-0.50) K/uL Baso # (Auto) 0.06 (0.00-0.20) K/uL Immature Gran # (Auto) 0.01 (0.01-0.20) K/uL PT 10.7 (9.0-12.0) Seconds INR 1.0 (0.9-1.1) Sodium 139 (136-145) mmol/L Potassium 3.9 (3.5-5.1) mmol/L Chloride 101 (98-107) mmol/L Carbon Dioxide 27 (21-32) mmol/L Anion Gap 11 (3-11) BUN 15 (6-23) mg/dl Creatinine 0.89 (0.6-1.2) mg/dl Est Cr Clr Drug Dosing 51.3 ml/min Est GFR ( Amer) 74.0 ml/min Est GFR (Non-Af Amer) 63.8 ml/min BUN/Creatinine Ratio 16.9 (10-20) Glucose 138 H (70-99(Fasting)) mg/dl Calcium 10.0 (8.6-10.3) mg/dl Magnesium 1.5 L (1.7-2.4) mg/dl Total Bilirubin 0.8 (0.2-1.0) mg/dl AST 17 (13-39) U/L ALT 16 (7-52) U/L Alkaline Phosphatase 69 (34-104) U/L Troponin I High Sens 5.2 (0-14) pg/ml Total Protein 7.7 (6.0-8.3) gm/dl Albumin 4.6 (3.4-5.0) gm/dl Globulin 3.1 (2.5-4.0) gm/dl Albumin/Globulin Ratio 1.5 (0.9-2) Lipase 12 (11-82) U/L Urine Color Yellow Urine Appearance Clear (Clear) Urine pH 5.5 (4.5-7.5) Ur Specific Se[place]our 1.006 (1.000-1.030) Urine Protein Negative (Negative) Urine Glucose (UA) Negative (Negative) Urine Ketones Negative (Negative) Urine Blood 1+ H (Negative) Urine Nitrite Negative (Negative) Urine Bilirubin Negative (Negative) Urine Urobilinogen Negative (Negative) Ur Leukocyte Esterase Negative (Negative) Urine WBC (Auto) 0-5 (0-5) /hpf Urine RBC (Auto) 3-5 H (0-2) /hpf U Hyaline Cast (Auto) 0-2 (0-2) /lpf U Epithel Cells (Auto) 0-2 (0-2) /hpf Urine Bacteria (Auto) None Seen (None Seen) Administered Medications Discontinued Medications Magnesium Sulfate/Dextrose (Magnesium Sulfate / D5w) 1 gm in 100 mls @ 100 mls/hr IV NOW STA Stop: 02/22/24 15:04 Last Infusion: 02/22/24 15:24 Dose: Infused Documented By: Admin: 02/22/24 14:19 Dose: 100 mls/hr Documented By: CC Imaging Data Radiologist's Impression: Chest X-Ray 02/22/24 13:14 XR chest 1V portable CLINICAL HISTORY: Chest pain, nonspecific TECHNIQUE: Single frontal radiograph of the chest was obtained. Comparison: Comparison is made to chest radiograph 10/19/2021 FINDINGS: No lines and tubes are seen. The cardiomediastinal silhouette is normal. The lungs are clear. No evidence of pleural effusion or pneumothorax. IMPRESSION: No acute chest disease. ACT 112: Negative or not required by law. Electronically signed by: Kar Mendoza M.D. 02/22/2024 2:05 PM Discharge Plan Visit Data Chief Complaint: Cardiac Assessment Stated Complaint: CARDIAC ASSESSMENT ED Provider: Chapis Miles Discharge Problem: Near syncope, Dysrhythmia, Hypomagnesemia Forms Stand Alone Forms: My [facility] [employer] Prescriptions Prescriptions: No Action metformin 500 mg Tablet 500 mg PO TIDM Rx Instructions: ON HOLD D/T CT SCAN. lisinopril-hydrochlorothiazide 20-12.5 mg Tablet 1 tab PO QAM meclizine 25 mg Tablet 25 mg PO TID PRN (Reason: Vertigo) pantoprazole 40 mg Tablet,Delayed Release (Dr/Ec) 40 mg PO QAM glimepiride 4 mg Tablet 4 mg PO QAM Rx Instructions: PER PT "TOOK AN EXTRA DOSE TODAY, D/T CT SCAN AND UNABLE TO TAKE METFORMIN". levothyroxine 112 mcg Tablet 112 mcg PO QAM cholecalciferol (vitamin D3) [Vitamin D3] 50 mcg (2,000 unit) Capsule 50 mcg PO QAM Referrals Referrals: Brannon Soriano MD [Primary Care Provider] -
[2024-02-22 14:02] LABS: Albumin Globulin Ratio 1.5 (0.9-2); Albumin Level 4.6 gm/dl (3.4-5.0); BUN Creatinine Ratio 16.9 (10-20); Bilirubin,Total 0.8 mg/dl (0.2-1.0); Creatinine Clr Calc Pharmacy 51.3 ml/min; Est GFR (Non-African American) 63.8 ml/min; Globulin 3.1 gm/dl (2.5-4.0); Magnesium 1.5 mg/dl (1.7-2.4); Potassium 3.9 mmol/L (3.5-5.1); Total Protein 7.7 gm/dl (6.0-8.3)
[2024-02-22 14:04] LABS: Troponin I High Sensitivity 5.2 pg/ml (0-14)
[2024-02-22 14:05] LABS: Prothrombin Time 10.7 Seconds (9.0-12.0)
--- NOTE | 2024-02-22 14:07 | XRay Report ---
XR chest 1V portable CLINICAL HISTORY: Chest pain, nonspecific TECHNIQUE: Single frontal radiograph of the chest was obtained. Comparison: Comparison is made to chest radiograph 10/19/2021 FINDINGS: No lines and tubes are seen. The cardiomediastinal silhouette is normal. The lungs are clear. No evid ence of pleural effusion or pneumothorax. IMPRESSION: No acute chest disease. ACT 112: Negative or not required by law. Electronically signed by: Kar Mendoza M.D. 02/22/2024 2:05 PM
[2024-02-22] MEDS: MAGNESIUM SULFATE / D5W 1 GM/100 ML BAG IV STA (14:19)
[2024-02-22 14:29] LABS: Appearance Urine Clear (Clear); Bacteria Urine Automated None Seen (None Seen); Bilirubin Urine Negative (Negative); Blood Urine 1+ (Negative); Cast Urine Automated 0-2 /lpf (0-2); Color Urine Yellow; Epithelial Cell Urine Auto 0-2 /hpf (0-2); Glucose Urine UA Negative (Negative); Ketones Urine Negative (Negative); Leukocyte Esterase Urine Negative (Negative); Nitrite Urine Negative (Negative); Protein Urine Negative (Negative); Specific Gravity Urine 1.006 (1.000-1.030); Urobilinogen Urine Negative (Negative); WBC Urine Automated 0-5 /hpf (0-5); pH Urine 5.5 (4.5-7.5)
--- NOTE | 2024-02-22 16:39 | History & Physical Report ---
Date of Service February 22, 2024 Assessment & Plan (1) Dysrhythmia: Plan: Frequent PVCs on telemetry and EKG, mostly bigeminy. In setting of presyncope, if not ischemic, possibly longer runs of NSVT causing this. 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 Mg sulfate 1g ordered in the ER, additional 2g ordered Given ongoing metformin and PPI use recommend chronic supplementation (4) Diabetes mellitus: Plan: HbA1c with a.m. labs Hold metformin and glimepiride NovoLog for correction factor only, if using frequently and basal dosing (5) Hypertension: Plan: Continue her usual lisinopril/hydrochlorothiazide/amlodipine Plan VTE prophylaxis - low risk Diet - heart healthy, type 2 diabetes, n.p.o. after midnight Disposition - observation to PCU Admission and Anticipated Discharge Date Admission Date: February 22, 2024 History of Present Illness Chief Complaint: Presyncope Primary Care Provider: Brannon Soriano MD Katerine Rubio is a 73 year old female who presents to the ER with presyncope and frequent PVCs. She notes occasionally having cold sweats while vacuuming the floor which is relieved with rest. These episodes have been coming on with increasing frequency and severity. The last 2 episodes of being much more severe. On Tuesday night, approximately 1/2 hours after eating she developed cold sweats, associated generalized weakness, lightheadedness. A couple of minutes later she vomited. No vertigo. The episode lasted approximately 1 hour. She took a glucose level which was 170 approximately 30 minutes after the episode started and before she ate anything. She had an additional episode on Tuesday night with a similar feeling while in an elevator. She denies complete syncope but had to hold onto the railing and fell down onto her backside. Yesterday she ate lightly and had no episodes. Today she had an appointment with her primary care physician who took an EKG in the office showing frequent PVCs in a bigeminy pattern and she was recommended to come to the ER for further assessment. She denies any chest pain, abdominal pain, change in bowels with these episodes. She denies any history of stroke or heart attack. She has no recent changes of medications. Her lisinopril/hydrochlorothiazide was increased from 1 to 2 pills approximately a year ago and amlodipine was added about the same time. She recalls HbA1c around 7.4. Glimepiride was last increased many months ago. Allergies Allergy/AdvReac Type Severity Reaction Status Date / Time codeine Allergy Intermediate SEVERE Verified 10/20/21 23:16 SHAKES/TREMORS levofloxacin Allergy Intermediate SWELLING Verified 10/20/21 23:16 OF FACE/THROAT metformin Allergy Intermediate ENDLESS Verified 10/20/21 23:16 DIARRHEA fentanyl Allergy Unknown UNKNOWN Verified 10/20/21 23:16 hydromorphone Allergy Unknown UNKNOWN Verified 10/20/21 23:16 oxycodone Allergy Unknown UNKNOWN Verified 10/20/21 23:16 Home Medications Medication Instructions Recorded Confirmed Type cholecalciferol (vitamin D3) 50 50 mcg PO QAM 02/09/21 02/22/24 History mcg (2,000 unit) capsule (Vitamin D3) glimepiride 4 mg tablet 4 mg PO BID 02/09/21 02/22/24 History lisinopril 20 2 tab PO QAM 02/09/21 02/22/24 History mg-hydrochlorothiazide 12.5 mg tablet meclizine 25 mg tablet 25 mg PO TID PRN Vertigo 02/09/21 02/22/24 History metformin 500 mg tablet 500 mg PO TIDM 02/09/21 02/22/24 History pantoprazole 40 mg tablet,delayed 40 mg PO QAM 02/09/21 02/22/24 History release amlodipine 2.5 mg tablet 2.5 mg PO DAILY 02/22/24 02/22/24 History levothyroxine 100 mcg tablet 100 mcg PO DAILY 02/22/24 02/22/24 History Past Med/Surg History Problem List (Updated 02/22/24 @ 22:27 by Porter Cardona MD) Hypomagnesemia (Acute) Dysrhythmia (Acute) Near syncope (Acute) Diabetes mellitus (Chronic) Medical History (Updated 02/22/24 @ 22:27 by Porter Cardona MD) Acute gastritis Nausea and vomiting after administration of anesthetic agent Hypertension Hypothyroidism GERD (gastroesophageal reflux disease) Diabetes mellitus, type 2 Surgical History History of cataract surgery RT History of dilatation and curettage History of arthroscopy left knee x4 History of esophagogastroduodenoscopy (EGD) History of colonoscopy History of appendectomy History of tooth extraction History of adenoidectomy History of tonsillectomy H/O ovarian cystectomy History of cholecystectomy History of section x2 Family History Other Family history not known due to adoption Social History Smoking Status: Never smoker Second Hand Exposure: No; Do You Dip or Chew Tobacco: No; Tobacco Cessation Education Requested by Patient: No Hx Alcohol Use: No Hx Substance Use: No Preferred Language: Albanian Communication Ability: Effective Reconstructive Dentist Required: No Beliefs That Will Affect Care: None Current Living Situation: Spouse Other Information That Helps Us Care for You: No Feels Safe at Home: Yes Safety Concerns: Feels Safe At This Time Assistive Devices: None Review of Systems Review of Systems: All systems reviewed & are unremarkable except as noted in HPI & below Physical Exam Constitutional: WD/WN, vitals as above Eyes: PERRL, conjunctivae normal, anicteric sclerae ENMT: external ear and nose normal, oropharynx normal Respiratory: normal respiratory effort, lungs clear to auscultation Cardiovascular: Rate/Rhythm: regular rate and regular rhythm (Bigeminy) Heart Sounds: + murmur (Systolic) Gastrointestinal (Abdomen): normal bowel sounds, soft, nontender, no hepatosplenomegaly Musculoskeletal: no cyanosis or clubbing, extremities motor strength 5/5 Skin: no rashes, warm and dry Neurologic: moves all extremities and awake; not confused Psychiatric: A+Ox3, euthymic affect Results & Data Results & Data Vital Signs (Past 12 Hours) Vital Signs Temp Pulse Pulse Resp BP BP Pulse Ox 02/22/24 13:28 69 02/22/24 13:27 81 18 159/70 H 97 02/22/24 13:17 36.8 C 85 18 159/70 H 97 O2 Del Method 02/22/24 13:28 02/22/24 13:27 02/22/24 13:17 Room Air Laboratory Results Abnormal lab results 02/22/24 02/22/24 02/22/24 Range/Units 13:24 14:02 19:59 Hct 36.2 L (37.0-47.0) % MCV 76.2 L (80.0-100.0) fL RDW Coeff of Sabi 15.7 H (11.5-14.5) % MPV 9.1 L (9.4-12.4) fL Glucose 138 H (70-99(Fasting)) mg/dl POC Glucose 129 H (70-99) mg/dl Magnesium 1.5 L (1.7-2.4) mg/dl Urine Blood 1+ H (Negative) Urine RBC (Auto) 3-5 H (0-2) /hpf Diagnostic Findings XR chest 1V portable CLINICAL HISTORY: Chest pain, nonspecific TECHNIQUE: Single frontal radiograph of the chest was obtained. Comparison: Comparison is made to chest radiograph 10/19/2021 FINDINGS: No lines and tubes are seen. The cardiomediastinal silhouette is normal. The lungs are clear. No evidence of pleural effusion or pneumothorax. IMPRESSION: No acute chest disease. Medications Administered ER medications given: Magnesium sulfate 1 g IV ECG Rate (beats per minute): 92 Rhythm: normal sinus Findings: + PVC (Pattern of bigeminy) and + RBBB (Incomplete) Comparison ECG Date: from (October 20, 2021) Change: the following changes noted (Frequent PVCs are new) Code Status & VTE Plan Code Status Full VTE Prophylaxis Plan VTE Prophylaxis will be ordered: No PG Care Time/CCT Total # of Minutes Spent Total Time Spent with Patient: Total time spent is greater than 50% in coordination of care (as documented) at patient's floor/unit and/or counseling patient: Coding Level of Care Code 44084 INT INP/OBS CARE 3/75MIN Diagnoses Other cardiac arrhythmia I49.8 Arrhythmia type: other cardiac arrhythmia Near syncope R55 Hypomagnesemia E83.42 Type 2 diabetes mellitus without complication, without long-term current use of insulin E11.9 Diabetes mellitus type: type 2 Diabetes mellitus computer terminal operator insulin use: without shelter use Diabetes mellitus complication status: without complication Primary hypertension I10 Hypertension type: primary hypertension (1) Dysrhythmia Arrhythmia type: other cardiac arrhythmia Qualified Code(s): I49.8 - Other specified cardiac arrhythmias (4) Diabetes mellitus Diabetes mellitus type: type 2 Diabetes mellitus shelter insulin use: without computer terminal operator use Diabetes mellitus complication status: without complication Qualified Code(s): E11.9 - Type 2 diabetes mellitus without complications (5) Hypertension Hypertension type: primary hypertension Qualified Code(s): I10 - Essential (primary) hypertension
[2024-02-22] MEDS ORDERED: GLUCAGON FOR INJ 1 MG VIAL SQ PRN (18:23)
[2024-02-22] MEDS ORDERED: DEXTROSE 50% 50 ML SYRINGE IV PRN (18:23)
[2024-02-22] MEDS ORDERED: CARBOHYDRATES FOR HYPOGLYCEMIA PO PRN (18:23)
[2024-02-22] MEDS ORDERED: GLUCOSE 40% GEL 15 GM TUBE PO PRN (18:23)
[2024-02-22] MEDS ORDERED: GLUCOSE 10 TAB/TUBE PO PRN (18:23)
[2024-02-22 19:17] LABS: Thyroid Stimulating Hormone 1.679 uIu/ml (0.300-4.500)
[2024-02-22] MEDS: MAGNESIUM SULFATE / D5W 1 GM/100 ML BAG IV SCH (21:00)
[2024-02-22] MEDS: INSULIN ASPART PER UNIT CHARGE SC SCH (21:00)
--- OUTSIDE RECORDS SUMMARY | 2024-02-22 21:52 | External Medical Summary | Continuity of Care Document ---
Author Name Unknown Organization [facility] [address] Address [address] [place], [place] [id number] Care Team Providers Care Closing Supervisor Name Role Phone Jose Antonio Soriano Primary Care Physician [phone] Encounter [facility] [id number] Date(s): 02/13/24 - 02/13/24 [facility] [address] [facility] 303 [facility] [place], [facility] 1 [place], [place] [phone] Encounter Diagnosis Encounter for general adult medical examination without abnormal findings(Final) - Hyperlipidemia, unspecified(Final) - Essential (primary) hypertension(Final) - Hypothyroidism, unspecified(Final) - Type 2 diabetes mellitus without complications(Final) - Discharge Disposition: Home or Self Care Attending Physician: CHEYENNE Chow Katy Marie Referring Physician: CHEYENNE Chow Katy Marie Allergies, Adverse Reactions, Alerts Substance Criticality Severity Reaction Reaction Severity Status codeine Severe "shakes"--tremor s Active Tylox Active MetFORMIN Hydrochloride ER Unable to assess criticality Severe Endless diarrhea entire 2 years of taking ER metformin version. Active Dilaudid Active Levaquin Swelling of fac e and throat Active Converse head felt funny Acti ve fentaNYL Active Immunizations Given and Recorded Vaccine Date Status Refusal Reason Zoster Vaccine Unspecified 07/03/23 Recorded RSV vaccine preF3, recombinant 05/20/23 Recorded zoster vaccine, inactivated 04/18/23 Recorded influenza virus vaccine, inactivated 03/26/23 Carl rded influenza virus vaccine, inactivated 03/30/22 Carl rded influenza virus vaccine, inactivated 04/20/21 Carl rded influenza virus vaccine, inactivated 03/27/20 Give n influenza virus vaccine, inactivated 05/21/19 Give n influenza virus vaccine, inactivated 05/03/18 Give n influenza virus vaccine, inactivated 03/17/16 Give n SARS COVID Vaccine Unspecified 03/26/23 Recorded SARS-CoV-2 (COVID-19) mRNA-vacc - [id number] 03/25/23 Recorded SARS-CoV-2 mRNA (Pfizer 12+) bivalent 03/11/22 Rec orded SARS-CoV-2 mRNA ([id number]) 09/29/21 Re corded SARS-CoV-2 (COVID-19) mRNA BNT-162b2 vax 1 03/20/21 Recorded SARS-CoV-2 (COVID-19) mRNA BNT-162b2 vax 2 09/10/20 Recorded SARS-CoV-2 (COVID-19) mRNA BNT-162b2 vax 3 09/06/20 Recorded SARS-CoV-2 (COVID-19) mRNA BNT-162b2 vax 4 08/16/20 Recorded tetanus/diphtheria/pertuss, acel (Tdap) 10/22/15 G iven pneumococcal 23-valent vaccine 5 03/24/15 Recorded 1Result Comment: 2021-05-22: Historical information-source unspecified 2Result Comment: 2021-02-20: Historical information-source unspecified 3Result Comment: 2021-02-20: Historical information-source unspecified 4Result Comment: 2021-02-20: Historical information-source unspecified 5Location History: [employer] Start: 09/04/21 2:11:00 PM EDT Start Date: 09/04/21 Status: Ordered amLODIPine 2.5 mg oral tablet Start: 12/07/23 8:30:00 AM EDT, 1 tab, PO, Daily, Disp# 90 tab, Refills: 3, Pharmacy: [id number] Start Date: 12/07/23 Status: Ordered Euflexxa 10 mg/mL intra-articular solution Start: 08/05/22 5:05:00 PM EST, 20 mg =, intra-articular, q7days, Disp# 6 mL, Refills: 0, 3 syringesfor L knee. Please ship to physician's office: [id number] [place] [address], [place] [address], Note to Pharmacy: L KNEE UZAIR M17.12, Pharmacy: [facility] Start Date: 08/05/22 Stop Date: 08/26/22 Status: Ordered glimepiride 4 mg oral tablet Start: 12/13/22 1:17:00 PM EDT, See Instructions, Disp# 180 tab, Refills: 3, TAKE 1 TABLET BY MOUTH TWICE A DAY, Pharmacy: [id number] Start Date: 12/13/22 Status: Ordered hydrochlorothiazide-lisinopril 12.5 mg-20 mg oral tablet Start: 10/21/23 11:17:00 AM EDT, See Instructions, Disp# 180 tab, Refills: 3, TAKE 2 TABLETS BY MOUTHEVERY DAY, Pharmacy: [facility]/pharmacy #[id number] Start Date: 10/21/23 Status: Ordered ibuprofen 600 mg oral tablet Start: 08/09/21 9:46:00 AM EST, 1 tab, PO, qid, Disp# 120 tab, Refills: 1, PRN: as needed for arthritis, [id number] Start Date: 08/09/21 Status: Ordered levothyroxine 100 mcg (0.1 mg) oral tablet Start: 01/23/24 11:39:00 AM EDT, 1 tab, PO, Daily, Disp# 90 tab, Refills: 3, Pharmacy: [id number] Start Date: 01/23/24 Status: Ordered meclizine 25 mg oral tablet Start: 06/15/23 9:41:00 AM EST, 1 tab, PO, tid, Disp# 270 tab, Refills: 3, PRN: as needed for dizziness, Pharmacy: [facility]/pharmacy #[id number] Start Date: 06/15/23 Status: Ordered metFORMIN 500 mg oral tablet Start: 12/13/22 1:17:00 PM EDT, See Instructions, Disp# 270 tab, Refills: 3, TAKE 1 TABLET BY MOUTH THREE TIMES A DAY, Pharmacy: [id number] Start Date: 12/13/22 Status: Ordered ONE TOUCH DELICA 33G LANCETS Start: 10/03/19 12:58:16 PM EDT, See Instructions, Disp# 100, Refills: 3, TEST BLOOD SUGAR DAILY, [id number], TEST BLOOD SUGAR DAILY Start Date: 10/03/19 Status: Ordered ONE TOUCH DELICA 33G LANCETS Start: 03/15/22 12:58:00 PM EDT, ONE TOUCH DELICA 33G LANCETS, See Instructions, Disp# 100 unknown unit, Refills: 3, TO TEST BLOOD SUGARS EVERY DAY DIRECTED E11.9, Pharmacy [facility] [id number] Start Date: 03/15/22 Status: Ordered ONE TOUCH DELICA PLUS 33G LANC Start: 12/13/22 1:17:00 PM EDT, ONE TOUCH DELICA PLUS 33G LANC, See Instructions, Disp# 100 unknown unit, Refills: 3, TO TEST BLOOD SUGARS EVERY DAY DIRECTED E11.9, Pharmacy [id number] Start Date: 12/13/22 Status: Ordered One Touch lancets Start: 04/02/21 5:22:00 PM EDT, One Touch lancets, eRx Product Type: Supply, See Instructions, Disp# 100 each, Refills: 3, To test blood sugars every day as directed e11.9, Pharmacy [facility]/pharmacy #[id number] Start Date: 04/02/21 Status: Ordered One Touch Ultra Blue Test Strips Start: 03/30/21 3:30:00 PM EDT, See Instructions, Disp# 100 each, Refills: 3, Use to test BSG once daily.e11.9, Note to Pharmacy: Dx: E11.9, Pharmacy: [facility]/pharmacy #[id number] Start Date: 03/30/21 Status: Ordered ONE TOUCH ULTRA BLUE TEST STRP ONE TOUCH ULTRA BLUE TEST STRP, See Instructions, Disp# 100 strip, Refills: 3, USE TO TEST BLOOD SUGAR DAILY, [facility] [id number] Start Date: 09/29/20 Status: Ordered ONE TOUCH ULTRA BLUE TEST STRP Start: 06/03/23 1:23:00 PM EST, ONE TOUCH ULTRA BLUE TEST STRP, See Instructions, Disp# 100 strip, Refills: 3, USE TO TEST BSG ONCE DAILY.E11.9, Pharmacy [facility] [id number] Start Date: 06/03/23 Status: Ordered ONE TOUCH ULTRA BLUE TEST STRP Start: 06/14/22 12:05:00 PM EST, ONE TOUCH ULTRA BLUE TEST STRP, See Instructions, Disp# 100 strip,Refills: 3, USE TO TEST BSG ONCE DAILY.E11.9, Pharmacy [facility] [id number] Start Date: 06/14/22 Status: Ordered One Touch Ultra Glucose Monitor Kit Start: 06/15/23 9:51:00 AM EST, See Instructions, Disp# 1 each, Refills: 0, test BSG once daily fasting and as needed for symptoms of hypoglycemia/hyperglycemia up to 3x/day, Pharmacy: [facility] #[id number] Start Date: 06/15/23 Status: Ordered ONE TOUCH ULTRA2 GLUCOSE SYST Start: 07/11/23 1:30:00 PM EST, ONE TOUCH ULTRA2 GLUCOSE SYST, See Instructions, Disp# 1 unknown unit, Refills: 0, TEST BSG ONCE DAILY FASTING AND NEEDED FOR SYMPTOMS OF HYPOGLYCEMIA/HYPERGLYCEMIA UP TO 3X/DAY, Pharmacy [id number] Start Date: 07/11/23 Status: Ordered pantoprazole 40 mg oral delayed release tablet Start: 10/21/23 11:17:00 AM EDT, See Instructions, Disp# 90 tab, Refills: 3, TAKE 1 TABLET BY MOUTH EVERY DAY, Pharmacy: [facility] #[id number] Start Date: 10/21/23 Status: Ordered Proctosol-HC 2.5% topical cream Start: 12/02/21 11:20:00 AM EDT, See Instructions, Disp# 28.35 g, Refills: 3, APPLY RECTALLY 3 TIMESA DAY FOR 14 DAYS, Pharmacy: [facility] #[id number] Start Date: 12/02/21 Status: Ordered Vitamin D3 2000 intl units oral capsule Start: 09/17/16 9:23:00 AM EDT, 1 cap, PO, Daily Start Date: 09/17/16 Status: Ordered Problem List Condition Confirmation Course Effective Dates Status H ealth Status Informant Arthritis 1 Confirmed Active Arthritis of left foot Confirmed Active Dupuytren's contracture of left hand Confirmed Active Ganglion cyst of flexor tendon sheath of finger of left hand Confirmed Active History of chicken pox Confirmed Active History of measles Confirmed Active History of kidney stones Confirmed Active Hyperlipidemia Confirmed Active Hypertension Confirmed Active Hypothyroidism Confirmed Active Left ear pain Confirmed Active Patellar maltracking Confirmed Active Medicare annual wellness visit, subsequent Confirmed Active Multiple chemical sensitivity syndrome Confirmed Active OA (osteoarthritis) of knee Confirmed Active Type II diabetes mellitus Confirmed Active Weight disorder Confirmed Active 1per pt hx form Procedures Procedure Date Related Diagnosis Body Site Status Cataract surgery 1 02/18/21 Comple joseph Shave biopsy and cauterizati on of skin 2 12/01/20 Completed Shave biopsy and cauterizati on of skin 3 12/01/20 Completed Shave biopsy and cauterizati on of skin 4 12/01/20 Completed Surgery 5 06/04/20 Completed Mammogram 6 01/19/17 Completed Colonoscopy 12/04/15 Completed Colonoscopy 7 12/04/15 Completed Cholecystectomy 1988 Completed section 1978 Complete d section 1973 Complete d Arthroscopy of knee 8 Com pleted Cystoscopy 9 Completed Lithotripsy 10 Completed 1Right Cataract Phacoemulsification with Intraocular Lens Implant 2Shave with Drysol - Left lateral breast 3Shave with Drysol - Right antecubital fossae 4Shave with Drysol - Left medial breast 5Primary left tarsometatarsal fusion #2 and 3 with excisional arthroplasty #4 same incision, and excision of the tarsometatarsal boss same incision, first metatarsal and navicular cuneiform joint. 6wnl 7COLO to cecum, sigmoid diverticulosis. hemorrhoids, repeat colo 10 years. 8Left knee--1970, 1979 and 1989 [address]16, 2003, 2012 10Done several times in the 1989's and s Results Laboratory List Name Date Hemoglobin A1C (HEMOGLOBIN, A1C) 02/13/24 Most recent to oldest [Reference Range]: 1 Estimated Average Glucose 166 mg/dL 1 (02/13/24 8:37 AM) HbA1c [4.0-6.0 %] 7.4 % *HI* (02/13/24 8:37 AM) 1Result Comment: Testing Performed By: Dept of Pathology [facility] [address], [address], [place] [address] Social History Social History Type Response Smoking Status Never smoked cigaret yelena Sex Female Sex Representation Female (finding) Implantable Device List Procedure Provider Procedure Date Device Type Site Unknown Unknown 06/04/20 Unknown Unknown Device Identifier Serial Number Lot or Batch Number Manufacturing Date Expiration Date Distinct Identification Code MRI Safety Implantable Status Assigning Authority Unknown Unknown [id number] Unknown 01/13/21 Unknown Unknown Active Unknown Unknown Unknown n/a Unknown Unknown Unknown Unknown Active Unkn own Unknown Unknown N/A Unknown Unknown Unknown Unknown Active Unkn own Unknown Unknown n/a Unknown Unknown Unknown Unknown Active Unkn own Unknown Unknown n/a Unknown Unknown Unknown Unknown Active Unkn own Unknown Unknown n/a Unknown Unknown Unknown Unknown Active Unkn own Unknown Unknown n/a Unknown Unknown Unknown Unknown Active Unkn own Unknown Unknown LEFT FOOT Unknown Unknown Unknown Unknown Active Unknown Patient Care team information Care Team Personnel Name: MD Soriano Ravishankar E Position: Physician Member Role: Primary Care Provider Address: [address] [place] [address] [place] Care Team Related Persons Name: GENET HERNANDEZ Name: ALVAREZ HONG Name: CANDIE HONG
--- OUTSIDE RECORDS SUMMARY | 2024-02-22 21:52 | External Medical Summary | Continuity of Care Document ---
Author Name Unknown Organization [address] Address [address] [place] [address] [phone] Care Team Providers Care Operational Trainer Name Role Phone Jose Antonio Soriano Primary Care Physician [phone] [facility] [id number] Date(s): 02/17/24 - 02/17/[address] [facility] [address] [facility], [address] [place] [address] [place] [phone] Encounter Diagnosis Type II diabetes mellitus(Discharge Diagnosis) - 02/17/24 Hypothyroidism(Discharge Diagnosis) - 02/17/24 Hypertension(Discharge Diagnosis) - 02/17/24 Hyperlipidemia(Discharge Diagnosis) - 02/17/24 Hemorrhoids(Discharge Diagnosis) - 02/17/24 Discharge Disposition: Home or Self Care Attending Physician: MD Soriano Ravishankar E Referring Physician: MD Soriano Ravishankar E Allergies, Adverse Reactions, Alerts Substance Criticality Severity Reaction Reaction Severity Status codeine Severe "shakes"--tremor s Active MetFORMIN Hydrochloride ER Unable to assess criticality Severe Endless diarrhea entire 2 years of taking ER metformin version. Active Tylox Active Dilaudid Active Levaquin Swelling of fac e and throat Active [place] head felt funny Acti ve fentaNYL Active Assessment and Plan Extracted from: Title:Office Visit Note Author:MD Soriano Ravishan kar E Date:02/17/24 1.Type II diabetes mellitu s - Continue current regimen - A1C and urinemicro ahead of next visitin 4 months - DM foot/eye UTD 2.Hypothyroidism - TSH/FT4 next September - Clinically euthyroid - continue as prescribed 3.Hypertension - Stable on current regimen - Continue as prescribed - BMP qApril 4.Hyperlipidemia - Intolerant to statin 5.Hemorrhoids - Refilled proctosol forprn use - fiber rich diet encouraged f/u 4 months for re-check. Time: 40mins 5 - pre-visit chart review 30 - visit, inclusive of history, exam, and discussion of assessment/plan 5 - post-visit documentation/orders/coordination of care Immunizations Given and Recorded Vaccine Date Status [...] Unspecified 03/26/23 Recorded SARS-CoV-2 (COVID-19) mRNA-vacc - [id number] 03/25/23 Recorded SARS-CoV-2 mRNA (Pfizer 12+) bivalent 03/11/22 Rec orded SARS-CoV-2 mRNA ([id number]) 09/29/21 Re corded SARS-CoV-2 (COVID-19) mRNA BNT-162b2 [...] Daily, Disp# 90 tab, Refills: 3, Pharmacy: [id number] Start Date: 12/07/23 Status: Ordered Euflexxa 10 mg/mL intra-articular solution Start: 08/05/22 5:05:00 PM EST, 20 mg =, intra-articular, q7days, Disp# 6 mL, Refills: 0, 3 syringesfor L knee. Please ship to physician's office: [address] [place] [place] [address], [place] [address], Note to Pharmacy: [facility] DNUNE M17.12, Pharmacy: [facility] Start Date: 08/05/22 Stop Date: 08/26/22 Status: Ordered glimepiride 4 mg oral tablet Start: 02/16/24 4:20:00 PM EDT, 1 tab, PO, bid, Disp# 180 tab, Refills: 3, Pharmacy: [id number] Start Date: 02/16/24 Status: Ordered hydrochlorothiazide-lisinopril 12.5 mg-20 mg oral tablet Start: 10/21/23 11:17:00 AM EDT, See Instructions, Disp# 180 tab, Refills: 3, TAKE 2 TABLETS BY MOUTHEVERY , Pharmacy: [facility]/pharmacy #[id number] Start Date: 10/21/23 Status: Ordered ibuprofen 600 mg oral tablet Start: 08/09/21 9:46:00 AM EST, 1 tab, PO, qid, Disp# 120 tab, Refills: 1, PRN: as needed for arthritis, Pharmacy: [facility]/pharmacy #[id number] Start Date: 08/09/21 Status: Ordered levothyroxine 100 mcg (0.1 mg) oral tablet Start: 01/23/24 11:39:00 AM EDT, 1 tab, PO, Daily, Disp# 90 tab, Refills: 3, Pharmacy: [id number] Start Date: 01/23/24 Status: Ordered meclizine 25 mg oral tablet Start: 06/15/23 9:41:00 AM EST, 1 tab, PO, tid, Disp# 270 tab, Refills: 3, PRN: as needed for dizziness, Pharmacy: [facility]/pharmacy #[id number] Start Date: 06/15/23 Status: Ordered metFORMIN 500 mg oral tablet Start: 02/16/24 4:20:00 PM EDT, 1 tab, PO, tid, Disp# 270 tab, Refills: 3, Pharmacy: [id number] Start Date: 02/16/24 Status: Ordered ONE TOUCH DELICA 33G LANCETS Start: 03/15/22 12:58:00 PM EDT, ONE TOUCH DELICA 33G LANCETS, See Instructions, Disp# 100 unknown unit, Refills: 3, TO TEST BLOOD SUGARS EVERY DAY DIRECTED E11.9, Pharmacy [id number] Start Date: 03/15/22 Status: Ordered One Touch Ultra Blue Test Strips Start: 03/30/21 3:30:00 PM EDT, See Instructions, Disp# 100 each, Refills: 3, Use to test BSG once daily.e11.9, Note to Pharmacy: Dx: E11.9, Pharmacy: [facility]/pharmacy #[id number] Start Date: 03/30/21 Status: Ordered ONE TOUCH ULTRA BLUE TEST STRP Start: 06/03/23 1:23:00 PM EST, ONE TOUCH ULTRA BLUE TEST STRP, See Instructions, Disp# 100 strip, Refills: 3, USE TO TEST BSG ONCE DAILY.E11.9, Pharmacy [id number] Start Date: 06/03/23 Status: Ordered One Touch Ultra Glucose Monitor Kit Start: 06/15/23 9:51:00 AM EST, See Instructions, Disp# 1 each, Refills: 0, test BSG once daily fasting and as needed for symptoms of hypoglycemia/hyperglycemia up to 3x/day, Pharmacy: [facility]/pharmacy #[id number] Start Date: 06/15/23 Status: Ordered ONE TOUCH ULTRA2 GLUCOSE SYST Start: 07/11/23 1:30:00 PM EST, ONE TOUCH ULTRA2 GLUCOSE SYST, See Instructions, Disp# 1 unknown unit, Refills: 0, TEST BSG ONCE DAILY FASTING AND NEEDED FOR SYMPTOMS OF HYPOGLYCEMIA/HYPERGLYCEMIA UP TO 3X/DAY, Pharmacy [id number] Start Date: 07/11/23 Status: Ordered pantoprazole 40 mg oral delayed release tablet Start: 10/21/23 11:17:00 AM EDT, See Instructions, Disp# 90 tab, Refills: 3, TAKE 1 TABLET BY MOUTH EVERY DAY, Pharmacy: [facility]/pharmacy #[id number] Start Date: 10/21/23 Status: Ordered Proctosol-HC 2.5% topical cream Start: 02/17/24 11:05:00 AM EDT, See Instructions, Disp# 28.35 g, Refills: 3, APPLY RECTALLY 3 TIMESA DAY FOR 14 DAYS, [id number] Start Date: 02/17/24 Status: Ordered Vitamin D3 2000 intl units oral capsule Start: 09/17/16 9:23:00 AM EDT, 1 cap, PO, Daily Start Date: 09/17/16 Status: Ordered Mental Status 02/17/24 Barriers to Learning one year None evide nt Mandatory Health Literacy Documentation Yes Health Literacy Communication Barriers N ever Primary Language Cambodian Problem List Condition Confirmation Course Effective Dates [...] disorder Confirmed Active 1per pt hx form Diagnosis Diagnosis Type Effective Dates Health Status Clinical Service Informant Hypothyroidism Discharge Diagnosis 02/17/24 Non-Specified Hypertension Discharge Diagnosis 02/17/24 Non-Specified Hyperlipidemia Discharge Diagnosis 02/17/24 Non-Specified Hemorrhoids Discharge Diagnosis 02/17/24 Non-Specified Type II diabetes mellitus Discharge Diagnosis 02/17/24 Non-Specified Procedures Procedure Date Related Diagnosis Body Site [...] diverticulosis. hemorrhoids, repeat colo 10 years. 8Left knee--1969, 1979 and 1989 31079, 2003, 2012 10Done several times in the 1989's and 1999's Vital Signs Most recent to oldest [Reference Range]: 1 Patient Weight 83.0 kg (02/17/24 10:37 AM) Temperature [36.5-37.9 DegC] 36.6 DegC (02/17/24 10:37 AM) Blood Pressure 140/80mmHg (02/17/24 10:40 AM) Social History Social History Type Response Smoking Status Never smoked cigaret yelena Sex Female Sex Representation Female (finding) Implantable Device List Procedure Provider Procedure Date Device Type Site Unknown Unknown 06/04/20 Unknown Unknown Device Identifier Serial Number Lot or Batch Number Manufacturing Date Expiration Date Distinct Identification Code MRI Safety Implantable Status Assigning Authority Unknown Unknown [id number] Unknown 01/13/21 Unknown Unknown Active Unknown Unknown [...] FOOT Unknown Unknown Unknown Unknown Active Unknown FCM Outpt Note * MD Bo, Jose Antonio Ireland: PERFORM Event Display: FCM Outpt Note Authored Date: [id number] Chief Complaint Pt is here for 4 month f/u. Had blood work drawn on tuesday History of Present Illness Katerine is a pleasant 73yoF here todya for f/uof chronic conditions. She has T2DM on regimen of glimepiride and metformin. A1C now improved further to 7.4% within goal for her. DM foot done at last visit and wnl.DM eye up to date. Hypothyroidism that is clinically euthyroid with TSH/FT4 at goal in 09/2023. HTN stable/well controlled on current regimen. Hyperlipidemia elevated since prior visit. Remains off-statin but encouraged to start this given risk from DM2. She has not historically tolerated statin so declines. is pending bone biopsy and a lot of uncertainty around his cancer diagnosis has her stressed. Following with Dr. Keila paul who is now retiring. Requests refill of proctosol for prnuse. Review of Systems 04/02pt ROS reviewed/negative except as noted in HPI. Physical Exam Vitals & Measurements T:36.6C BP:140/80 SpO2:98% WT:83.000kg(Dosing) WT:83.0kg PHQ2 Data(Data Documented on:02/17/2024 10:34) Emotional health assessment NEGATIVE GENERAL APPEARANCE: The patient is alert, oriented and in no acute distress. VITALS: As above. HEENT: Head is normocephalic/atraumatic. CARDIOVASCULAR: +2 radial pulses. LUNGS: Respirations even and unlabored. EXTREMITIES: No cyanosis, clubbing or edema. NEUROLOGICAL: Grossly non-focal exam. SKIN: Warm and dry without any rash. Assessment/Plan 1.Type II diabetes mellitus - Continue current regimen - A1C and urinemicro ahead of next visitin 4 months - DM foot/eye UTD 2.Hypothyroidism - TSH/FT4 next September - Clinically euthyroid - continue as prescribed 3.Hypertension - Stable on current regimen - Continue as prescribed - BMP qApril 4.Hyperlipidemia - Intolerant to statin 5.Hemorrhoids - Refilled proctosol forprn use - fiber rich diet encouraged f/u 4 months for re-check. Time: 40mins 5 - pre-visit chart review 30 - visit, inclusive of history, exam, and discussion of assessment/plan 5 - post-visit documentation/orders/coordination of care Problem List/Past Medical History Ongoing Arthritis Arthritis of left foot Dupuytren's contracture of left hand Ganglion cyst of flexor tendon sheath of finger of left hand History of chicken pox History of kidney stones History of measles Hyperlipidemia Hypertension Hypothyroidism Left ear pain Medicare annual wellness visit, subsequent Multiple chemical sensitivity syndrome OA (osteoarthritis) of knee Patellar maltracking Type II diabetes mellitus Weight disorder Resolved Cough Left foot pain Procedure/Surgical History Cataract surgery| Service Date: 02/18/2021have biopsy and cauterization of skin| Service Date: 12/01/2020have biopsy and cauterization of skin| Service Date: 12/01/2020have biopsy and cauterization of skin| Service Date: 12/01/2020urgery| Service Date: 06/04/2020Mammogram| Service Date: 01/19/2017Colonoscopy| Service Date: 12/04/2015Colonoscopy| Service Date: 12/04/2015Cholecystectomy| Service Date: 1988Cesarean section| Service Date: 1978Cesarean section| Service Date: 1973CystoscopyLithotripsyArthroscopy of knee Medications amLODIPine(amLODIPine 2.5 mg oral tablet), 1 tab, PO, Daily cholecalciferol(Vitamin D3 2000 intl units oral capsule), 2000 Int_Unit= 1 cap, PO, Daily diabetes supplies(One Touch Ultra Glucose Monitor Kit), See Instructions diabetes supplies(One Touch Ultra Blue Test Strips), See Instructions, 3 refills glimepiride(glimepiride 4 mg oral tablet), 1 tab, PO, bid hydrochlorothiazide-lisinopril(hydrochlorothiazide-lisinopril 12.5 mg-20 mg oral tablet), See Instructions, 3 refills hydrocortisone topical(Proctosol-HC 2.5% topical cream), See Instructions, 3 refills ibuprofen(ibuprofen 600 mg oral tablet), 600 mg= 1 tab, PO, qid, PRN, 1 refills levothyroxine(levothyroxine 100 mcg (0.1 mg) oral tablet), 1 tab, PO, Daily meclizine(meclizine 25 mg oral tablet), 25 mg= 1 tab, PO, tid, PRN, 3 refills metFORMIN(metFORMIN 500 mg oral tablet), 1 tab, PO, tid naproxen(Aleve) pantoprazole(pantoprazole 40 mg oral delayed release tablet), See Instructions, 3 refills sodium hyaluronate(Euflexxa 10 mg/mL intra-articular solution), 20 mg, intra- articular, q7days unlisted medication(ONE TOUCH ULTRA BLUE TEST STRP), See Instructions unlisted medication(ONE TOUCH DELICA 33G LANCETS), See Instructions unlisted medication(ONE TOUCH ULTRA2 GLUCOSE SYST), See Instructions Allergies MetFORMIN Hydrochloride ER(Severe)Endless diarrhea entire 2 years of taking ER metformin version. Dilaudid LevaquinSwelling of face and throat [place] felt funny Tylox codeineSevere "shakes"--tremors fentaNYL Social History Smoking Status Never smoked cigarettes Alcohol - Low Risk Type:Wine - Comments: Once in a while Employment/School Status:Retired Home/Environment Lives with:Spouse Sexual Sexually active:No Substance Abuse - Denies Substance Abuse Tobacco - Denies Tobacco Use Use:Never smoker Family History Patient was adopted Immunizations Vaccine Date Status Zoster Vaccine Unspecified 07/03/2023 Recorded RSV vaccine preF3, recombinant 05/20/2023 Recorded zoster vaccine, inactivated 04/18/2023 Recorded influenza virus vaccine, inactivated 03/26/2023 Recorded SARS COVID Vaccine Unspecified 03/26/2023 Recorded SARS-CoV-2 (COVID-19) mRNA-vacc - [id number] 03/25/2023 Recorded influenza virus vaccine, inactivated 03/30/2022 Recorded SARS-CoV-2 mRNA (Pfizer 12+) bivalent 03/11/2022 Recorded SARS-CoV-2 mRNA ([id number]) 09/29/2021 Recorded pneumococcal 13-valent vaccine - Not Given Comments : Contraindicated - Do not give prior reaction influenza virus vaccine, inactivated 04/20/2021 Recorded SARS-CoV-2 (COVID-19) mRNA BNT-162b2 vax 03/20/2021 Recorded Comments : 2021-05-22: Historical information-source unspecified SARS-CoV-2 (COVID-19) mRNA BNT-162b2 vax 09/10/2020 Recorded Comments : 2021-02-20: Historical information-source unspecified SARS-CoV-2 (COVID-19) mRNA BNT-162b2 vax 09/06/2020 Recorded Comments : 2021-02-20: Historical information-source unspecified SARS-CoV-2 (COVID-19) mRNA BNT-162b2 vax 08/16/2020 Recorded Comments : 2021-02-20: Historical information-source unspecified influenza virus vaccine, inactivated 03/27/2020 Given influenza virus vaccine, inactivated 05/21/2019 Given influenza virus vaccine, inactivated 05/03/2018 Given influenza virus vaccine, inactivated 03/17/2016 Given tetanus/diphtheria/pertuss, acel (Tdap) 10/22/2015 Given pneumococcal 23-valent vaccine 03/24/2015 Recorded Comments : Employer Recommendations Health Maintenance Pending(in the next year) OverDue Falls Plan of Care due06/05/21and every 1year Medicare Annual Wellness Visit due05/22/22and every 1year Adult Influenza Vaccine due12/18/23and every 1year Due Adult Social Determinants of Health Screening due02/17/24Unknown Frequency Pneumococcal Vaccine Older Adults due02/17/24One-time only Due In Future Diabetes Management A1c not due until02/13/25and every 366day Satisfied(in the past 1 year) Satisfied Adult Influenza Vaccine on03/26/23.Satisfied by DORA Don, Chanell Body Mass Index on10/17/23.Satisfied by LESLYE Man Angela Breast Cancer Screening on01/09/24.Satisfied by BUDDY Dai Lynnae Diabetes Management A1c on02/13/24.Satisfied by Contributor_system, [id number] Diabetes Nephropathy Management on06/06/23.Satisfied by Contributor_system, [id number] Diabetic Eye Exam on06/24/23.Satisfied by DORA Don Gillian Lipid Screening on10/10/23.Satisfied by Contributor_system, [id number] Shingles Vaccine on04/18/23.Satisfied by MD Bo, Jose Antonio Ireland Electronic Signature on File Electronically Reviewed/Signed by: Jose Antonio Soriano MD Author Signature Dt/Tm:02/17/2024 11:13 AM Department of Family Medicine [facility] Patient Care team information Care Team Personnel Name: MD Soriano Ravishankar E Position: Physician Member Role: Primary Care Provider Address: [address] [place] [address] [place] Care Team Related Persons Name: GENET HERNANDEZ Name: ALVAREZ HONG Name: CANDIE HONG
[2024-02-23] MEDS: LEVOTHYROXINE SODIUM 100 MCG TABLET PO SCH (06:34)
[2024-02-23 07:51] LABS: Basophils # (auto) 0.06 K/uL (0.00-0.20); Basophils % (auto) 1.1 %; Eosinophils # (auto) 0.22 K/uL (0.00-0.50); Eosinophils % (auto) 4.1 %; Hematocrit (blood only) 30.8 % (37.0-47.0); Hemoglobin 10.2 g/dl (12.0-16.0); Lymphocytes # (auto) 1.75 K/uL (1.20-3.40); Lymphocytes % (auto) 32.5 %; Mean Corpuscular Hgb Conc 33.1 g/dL (32.0-36.0); Mean Corpuscular Volume 75.5 fL (80.0-100.0); Mean Platelet Volume 9.2 fL (9.4-12.4); Monocytes % (auto) 9.3 %; Neutrophils # (auto) 2.85 K/uL (1.40-6.50); Platelet Count 234 K/uL (130-400); RDW Coefficient of Variation 15.7 % (11.5-14.5); RDW Standard Deviation 42.9 fL (36.4-46.3); Red Blood Count 4.08 M/uL (4.20-5.40); White Blood Count 5.38 K/ul (4.8-10.8)
[2024-02-23 08:14] LABS: Calcium 8.5 mg/dl (8.6-10.3); Potassium 3.5 mmol/L (3.5-5.1)
[2024-02-23 08:15] LABS: Estimated Average Glucose 186 mg/dl; Hemoglobin A1C 8.1 % (4.5-5.6)
[2024-02-23 08:20] LABS: BUN Creatinine Ratio 16.9 (10-20); Creatinine Clr Calc Pharmacy 64.6 ml/min; Est GFR (African American) 88.2 ml/min; Est GFR (Non-African American) 76.1 ml/min
[2024-02-23] MEDS: amLODIPine BESYLATE 5 MG TAB PO SCH (08:37)
[2024-02-23] MEDS: CHOLECALCIFEROL 25 MCG (1000 UNITS) TAB PO SCH (08:40)
[2024-02-23] MEDS: PANTOprazole 40 MG TAB PO SCH (08:41)
[2024-02-23] MEDS: LISINOPRIL/HCTZ 20/12.5MG 1 TAB TAB PO SCH (08:41)
--- NOTE | 2024-02-23 08:42 | Cardiology Consultation ---
Date of Consultation February 23, 2024 Assessment & Plan (1) Near syncope: (2) PVCs (premature ventricular contractions): (3) RBBB (right bundle branch block with left anterior fascicular block): (4) Hypochromic microcytic anemia: (5) Hypomagnesemia: (6) Diabetes mellitus: Plan await stress test to further eval work up. Anemia needs eval as well given it appears to be hypochromic microcytic. Need to r/o Iron deficiency and potential bleeding. She has a longstanding hx of hematuria which she says is due to kidney stones. Check iron levels and hem occult stool-this is potentially very relevant if we need to do further cardiac testing ie cath, CBI given need for DAPT with any treatment. Prior GI eval with EGD showed gastritis, but she has been on PPI all along. Consider check kidney US to eval possible stones as source of hematuria. I will follow with you. Will recommend after I review the DSE Thank you for the consult. History of Present Illness Reason for Consultation: eval near syncope, frequent PVCs Requesting Physician: JACQUI Castro FP Attending Physician: Daniel Fortune History of Present Illness Thank you for the consult. I was called yesterday in the office regarding what appeared to be somewhat unstable symptoms. She was having exertional presyncope along with nausea and vomiting which apparently has been worsening. Her ECG in the office showed NSR with frequent PVCs as well as RBBB with LAHB. Given sympt oms, I advised that she go to ER for eval and admission. She appears to have r/o for [place]. She is to have DSE later today. Allergies Allergy/AdvReac Type Severity Reaction Status Date / Time codeine Allergy Intermediate SEVERE Verified 10/20/21 23:16 SHAKES/TREMORS levofloxacin Allergy Intermediate SWELLING Verified 10/20/21 23:16 OF FACE/THROAT metformin Allergy Intermediate ENDLESS Verified 10/20/21 23:16 DIARRHEA fentanyl Allergy Unknown UNKNOWN Verified 10/20/21 23:16 hydromorphone Allergy Unknown UNKNOWN Verified 10/20/21 23:16 oxycodone Allergy Unknown UNKNOWN Verified 10/20/21 23:16 Home Medications Medication Instructions Recorded Confirmed Type cholecalciferol (vitamin D3) 50 50 mcg PO QAM 02/09/21 02/22/24 History mcg (2,000 unit) capsule (Vitamin D3) glimepiride 4 mg tablet 4 mg PO BID 02/09/21 02/22/24 History lisinopril 20 2 tab PO QAM 02/09/21 02/22/24 History mg-hydrochlorothiazide 12.5 mg tablet meclizine 25 mg tablet 25 mg PO TID PRN Vertigo 02/09/21 02/22/24 History metformin 500 mg tablet 500 mg PO TIDM 02/09/21 02/22/24 History pantoprazole 40 mg tablet,delayed 40 mg PO QAM 02/09/21 02/22/24 History release amlodipine 2.5 mg tablet 2.5 mg PO DAILY 02/22/24 02/22/24 History levothyroxine 100 mcg tablet 100 mcg PO DAILY 02/22/24 02/22/24 History Patient History Medical History Acute gastritis Nausea and vomiting after administration of anesthetic agent Hypertension Hypothyroidism GERD (gastroesophageal reflux disease) Diabetes mellitus, type 2 Surgical History History of cataract surgery RT History of dilatation and curettage History of arthroscopy left knee x4 History of esophagogastroduodenoscopy (EGD) History of colonoscopy History of appendectomy History of tooth extraction History of adenoidectomy History of tonsillectomy H/O ovarian cystectomy History of cholecystectomy History of section x2 Family History Other Family history not known due to adoption Social History Smoking Status: Never smoker Second Hand Exposure: No; Do You Dip or Chew Tobacco: No; Tobacco Cessation Education Requested by Patient: No Hx Alcohol Use: No Hx Substance Use: No Preferred Language: Austrian Communication Ability: Effective Public Stenographer Required: No Beliefs That Will Affect Care: None Current Living Situation: Spouse Other Information That Helps Us Care for You: No Feels Safe at Home: Yes Safety Concerns: Feels Safe At This Time Assistive Devices: None Review of Systems Review of Systems: All systems reviewed & are unremarkable except as noted in HPI & below Physical Exam Physical Exam: AAO x 3 in NAD Constitutional: WD/WN, vitals as above ENMT: external ear and nose normal, oropharynx normal Neck: no JVD or carotid bruits Respiratory: normal respiratory effort, lungs clear to auscultation Cardiovascular: RRR, no murmur, no edema Gastrointestinal (Abdomen): normal bowel sounds, soft, nontender, no hepatosplenomegaly Results & Data Vital Signs (Past 12 Hours) Vital Signs Temp Pulse Pulse Resp BP Pulse Ox O2 Del Method 02/23/24 07:11 36.7 C 68 18 122/76 97 Room Air 02/23/24 03:16 36.5 C 80 18 113/73 98 Room Air 02/22/24 22:17 36.6 C 51 L 18 145/89 H 97 Room Air 02/22/24 21:35 83 Laboratory Results Abnormal lab results 02/22/24 02/22/24 02/22/24 Range/Units 13:24 14:02 19:59 RBC (4.20-5.40) M/uL Hgb (12.0-16.0) g/dl Hct 36.2 L (37.0-47.0) % MCV 76.2 L (80.0-100.0) fL RDW Coeff of Sabi 15.7 H (11.5-14.5) % MPV 9.1 L (9.4-12.4) fL Immature Gran # (Auto) (0.01-0.20) K/uL Glucose 138 H (70-99(Fasting)) mg/dl POC Glucose 129 H (70-99) mg/dl Hemoglobin A1c (4.5-5.6) % Calcium (8.6-10.3) mg/dl Magnesium 1.5 L (1.7-2.4) mg/dl Urine Blood 1+ H (Negative) Urine RBC (Auto) 3-5 H (0-2) /hpf 02/23/24 02/23/24 Range/Units 07:10 07:25 RBC 4.08 L (4.20-5.40) M/uL Hgb 10.2 L (12.0-16.0) g/dl Hct 30.8 L (37.0-47.0) % MCV 75.5 L (80.0-100.0) fL RDW Coeff of Sabi 15.7 H (11.5-14.5) % MPV 9.2 L (9.4-12.4) fL Immature Gran # (Auto) 0.00 L (0.01-0.20) K/uL Glucose 149 H (70-99(Fasting)) mg/dl POC Glucose 154 H (70-99) mg/dl Hemoglobin A1c 8.1 H (4.5-5.6) % Calcium 8.5 L (8.6-10.3) mg/dl Magnesium (1.7-2.4) mg/dl Urine Blood (Negative) Urine RBC (Auto) (0-2) /hpf ECG Additional Comments: NSR with PVCs bigeminy RBBB LAHB (6) Diabetes mellitus Diabetes mellitus complication status: without complication Diabetes mellitus mcc insulin use: without mcc use Diabetes mellitus type: type 2 Qualified Code(s): E11.9 - Type 2 diabetes mellitus without complications
[2024-02-23 09:28] LABS: Iron 56 mcg/dl (35-150); Total Iron Binding Cap Calc 432 mcg/dl (250-450); Transferrin (FE) Percent Satur 13 % (15-50); Unsaturated Iron Binding Cap 376 mcg/dl (155-355)
[2024-02-23] MEDS: ATROPINE SULFATE 0.1 MG/ML 10ML SYR IV ONE (09:54)
[2024-02-23] MEDS: DOBUTamine HCL 12.5 MG/ML 20 ML VIAL IV ONE (09:54)
[2024-02-23] MEDS: METOPROLOL TARTRATE 1 MG/ML VIAL IV ONE (09:55)
--- NOTE | 2024-02-23 10:45 | Electrocardiogram Report ---
Test Reason : Blood Pressure : */* mmHG Vent. Rate : 92 BPM Atrial Rate : 92 BPM P-R Int : 146 ms QRS Dur : 96 ms QT Int : 392 ms P-R-T Axes : 52 -56 65 degrees QTcB Int : 484 ms Sinus rhythm with frequent Premature ventricular complexes in a pattern of bigeminy Incomplete right bundle branch block Left anterior fascicular block Minimal voltage criteria for LVH, may be normal variant Possible Lateral infarct , age undetermined Abnormal ECG When compared with ECG of 20-Oct-2021 22:12, Premature ventricular complexes are now Present Confirmed by Edward Phillips ([id number]) on 02/23/2024 10:44:56 AM Referred By: Brannon Soriano Confirmed By: Edward Phillips
--- NOTE | 2024-02-23 13:57 | Pre Anesthesia Assessment ---
Date of Service February 23, 2024 Pre Sedation Assessment Vital Signs Temp Pulse Pulse Resp BP BP Pulse Ox 02/23/24 13:47 70 14 144/84 H 98 02/23/24 11:04 36.7 C 57 L 18 143/82 H 97 02/23/24 08:00 69 02/23/24 07:11 36.7 C 68 18 122/76 97 02/23/24 03:16 36.5 C 80 18 113/73 98 02/22/24 22:17 36.6 C 51 L 18 145/89 H 97 02/22/24 21:35 83 02/22/24 19:55 36.6 C 53 L 18 157/77 H 98 02/22/24 19:00 84 02/22/24 18:23 36.9 C 86 16 164/81 H 97 02/22/24 18:23 36.9 C 86 16 164/81 H 97 02/22/24 17:57 88 18 136/87 97 02/22/24 17:42 88 18 97 02/22/24 17:37 78 02/22/24 17:33 68 20 136/87 97 02/22/24 17:30 136/87 02/22/24 17:30 136/87 02/22/24 17:24 85 17 96 02/22/24 16:51 96 H 22 99 02/22/24 16:27 83 13 98 02/22/24 16:15 84 24 99 02/22/24 16:09 85 13 97 02/22/24 15:45 69 14 98 02/22/24 15:21 88 15 99 02/22/24 15:15 81 15 96 02/22/24 15:00 126/84 02/22/24 15:00 126/84 02/22/24 15:00 126/84 02/22/24 15:00 76 17 98 02/22/24 14:54 69 16 99 02/22/24 14:42 78 11 L 97 02/22/24 14:30 141/91 H 02/22/24 14:30 141/91 H 02/22/24 14:18 68 22 97 02/22/24 14:15 83 15 98 02/22/24 14:09 69 13 98 O2 Del Method 02/23/24 13:47 Room Air 02/23/24 11:04 Room Air 02/23/24 08:00 02/23/24 07:11 Room Air 02/23/24 03:16 Room Air 02/22/24 22:17 Room Air 02/22/24 21:35 02/22/24 19:55 Room Air 02/22/24 19:00 02/22/24 18:23 Room Air 02/22/24 18:23 Room Air 02/22/24 17:57 Room Air 02/22/24 17:42 02/22/24 17:37 02/22/24 17:33 02/22/24 17:30 02/22/24 17:30 02/22/24 17:24 02/22/24 16:51 02/22/24 16:27 02/22/24 16:15 02/22/24 16:09 02/22/24 15:45 02/22/24 15:21 02/22/24 15:15 02/22/24 15:00 02/22/24 15:00 02/22/24 15:00 02/22/24 15:00 02/22/24 14:54 02/22/24 14:42 02/22/24 14:30 02/22/24 14:30 02/22/24 14:18 02/22/24 14:15 02/22/24 14:09 Cardiovascular RRR, no murmur, no edema Respiratory normal respiratory effort, lungs clear to auscultation Pre-Sedation Airway Assessment Smoking Status: Never smoker Mallampati 2 ASA 3 Notes The planned sedation has been discussed with the patient. Informed Consent was obtained. I have identified the patient, determined the appropriateness of sedation and have assessed the patient immediately prior to the procedure. All medicine(s) and interventions are by my order.
[2024-02-23] MEDS: ASPIRIN 325 MG ECTAB PO ONE (14:39)
[2024-02-23] MEDS: niCARdipine HCL INJ 2.5 MG/ML 10 ML AMP ONE (14:39)
[2024-02-23] MEDS: NITROGLYCERIN/D5W 100MCG/ML 20ML SYR ONE (14:40)
[2024-02-23] MEDS: HEPARIN (PORCINE) 1000 UNIT/ML 10 ML (CATH LAB USE ONLY) ONE (14:56)
[2024-02-23] MEDS: MIDAZOLAM HCL 1 MG/ML 2ML VIAL ONE (14:56)
[2024-02-23] MEDS: fentaNYL citrate PF 100 MCG/2 ML VIAL ONE (14:57)
[2024-02-23] MEDS: diphenhydrAMINE 50 MG/ML VIAL ONE (14:57)
[2024-02-23] MEDS: OPTIRAY 350 ONE (14:58)
--- NOTE | 2024-02-23 15:10 | Post Anesthesia Assessment ---
Date of Service February 23, 2024 Post Sedation Assessment Vital Signs Temp Pulse Pulse Resp BP BP Pulse Ox 02/23/24 13:47 70 14 144/84 H 98 02/23/24 11:04 36.7 C 57 L 18 143/82 H 97 02/23/24 08:00 69 02/23/24 07:11 36.7 C 68 18 122/76 97 02/23/24 03:16 36.5 C 80 18 113/73 98 02/22/24 22:17 36.6 C 51 L 18 145/89 H 97 02/22/24 21:35 83 02/22/24 19:55 36.6 C 53 L 18 157/77 H 98 02/22/24 19:00 84 02/22/24 18:23 36.9 C 86 16 164/81 H 97 02/22/24 18:23 36.9 C 86 16 164/81 H 97 02/22/24 17:57 88 18 136/87 97 02/22/24 17:42 88 18 97 02/22/24 17:37 78 02/22/24 17:33 68 20 136/87 97 02/22/24 17:30 136/87 02/22/24 17:30 136/87 02/22/24 17:24 85 17 96 02/22/24 16:51 96 H 22 99 02/22/24 16:27 83 13 98 02/22/24 16:15 84 24 99 02/22/24 16:09 85 13 97 02/22/24 15:45 69 14 98 02/22/24 15:21 88 15 99 02/22/24 15:15 81 15 96 O2 Del Method 02/23/24 13:47 Room Air 02/23/24 11:04 Room Air 02/23/24 08:00 02/23/24 07:11 Room Air 02/23/24 03:16 Room Air 02/22/24 22:17 Room Air 02/22/24 21:35 02/22/24 19:55 Room Air 02/22/24 19:00 02/22/24 18:23 Room Air 02/22/24 18:23 Room Air 02/22/24 17:57 Room Air 02/22/24 17:42 02/22/24 17:37 02/22/24 17:33 02/22/24 17:30 02/22/24 17:30 02/22/24 17:24 02/22/24 16:51 02/22/24 16:27 02/22/24 16:15 02/22/24 16:09 02/22/24 15:45 02/22/24 15:21 02/22/24 15:15 Recovery Score Activity: Moves 4 extremities Respiration: Deep Breath/Cough Circulation: +/-20% PreAnes Value Consciousness: Fully Awake Oxygen Saturation: > 92% On Room Air Discharge Sedation Level of Care: Fast Track Phase II Post Sedation Plan On clinical assessment, the patient appears to have tolerated the sedation without complications. Patient is recovering as anticipated. Patient will continue to be monitored by nursing and may be discharged when sedation discharge criteria are met per below protocol. Upon Completions of procedure up to 15 minutes continue every 5 minute vital signs and the P.A.R. score; then discharge to a Phase I or Fast Track to Phase II per the following guidelines: * Discharge Patient to appropriate Phase II area if PAR is 8 or greater or return to pre- procedure baseline. The post - procedure orders will be as directed. * If PAR score is less than 8 or not return to pre-procedure baseline then patient will follow Phase I monitoring till PAR is reached for Phase II. The Phase I may be done in procedure room or may call to secure a Phase I area. * If naloxone or flumazenil are used for reversal, hold in Phase I for cont inued monitoring from when last reversal dose was given for a minimum of 60 minutes or longer pending the nurse and/or physician discretion of patient condition before discharge to Phase II. Please call the Sedation Physician to re-evaluate and complete post-note for discharge to Phase II area. Do NOT discharge from procedure sedation or Phase 1 until post- sedation evaluation note is complete by procedure /sedation MD Sedation Discharge Instructions to be given to the patient at discharge to home. [facility] Procedure Codes (Charges) Indication for Procedure Indication for procedure: abnormal stress test Sedation/Anesthesia Procedure 1: Sedation/Anesthesia: 58345 Mod Sedation by the same physician;Init15 Min Child Age 5 & Up (Start time 1446, end time 1456) Total Sedation Time (minutes): 10
--- NOTE | 2024-02-23 15:20 | Cardiac Catheterization ---
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 Cardiac Status Clinical evaluation leading to the procedure CAD Presenation: No Sxs, No angina, Positive Stress Test and Sx unlikely to be ischemic Anginal Classification: No Symptoms Heart Failure: No Cardiogenic Shock within 24 Hours: No Cardiac Arrest within 24 Hours: No Imaging Studies Past 6 Months: No Stress Studies Past 6 Months: Yes Stress Echocardiogram: Yes - Positive Coronary Anatomy Dominant: Right Left Main (% Stenosis): Normal LAD (% Stenosis): Proximal (30%) and Distal (50%) D1 (% Stenosis): Normal Circumflex (% Stenosis): Normal OM1 (% Stenosis): Normal OM2 (% Stenosis): Proximal (40%) RCA (% Stenosis): Proximal (50%), Mid (40%) and Distal (Mild scattered less than 30%) R PDA (% Stenosis): Normal Diagnostic Physicians Name: Winston Thomas MD, PhD Closure Device Percutaneous Entry Location: Radial Closure Device: Radial Band Recommendations: Medical Therapy and/or Counseling Cardiac Cath Procedure Full Procedure Date February 23, 2024 Pre-Procedure Diagnosis Pre-Procedure Diagnosis: Positive Stress Test AUC Score AUC Score: 07 Post-Procedure Diagnosis Post-Procedure Diagnosis: Moderate CAD Procedure(s) Performed Procedure(s) Performed: Coronary Angiography Con[employer] Finishing Supervisor Winston Thomas MD, PhD Estimated Blood Loss Estimated Blood Loss: Less than 3 cc Medication(s) Medication(s): Diphenhydramine, Lidocaine 1%, Nicardipine, Nitroglycerin and Versed Summary of Findings Brief description: Patient was brought to the cardiac catheterization suite where she was shaved and prepped in a sterile fashion. Sedated using IV Versed and Benadryl. Soft tissues of the right wrist were anesthetized using 2 mL of 1% Xylocaine. The right radial artery was accessed with a modified Seldinger technique and a 6 [place]ian radial artery glide sheath was placed. Patient was provided antispasmodics including nicardipine and nitroglycerin. All catheters were advanced and exchanged over a 0.035 J-tip wire. Left coronary angiography in orthogonal views with a 5 [place] Agness 4 diagnostic catheter. Right coronary angiography in orthogonal views with a 5 [place] JR4 diagnostic catheter Diagnostic catheters were removed. Radial artery sheath was removed. Hemostasis was obtained using the TR band. Patient remained hemodynamically stable and asymptomatic. She was returned to the recovery area. This ended the case. Coronary angiography findings: YFB-mqdaj-hirtcla vessel bifurcating into LAD and circumflex. No a ngiographically significant disease. DXO-zewye-npihzkd vessel. Transapical. Proximal segment with mild less than 30% stenosis. Gives a large branching first diagonal without significant disease and a large septal branch which has ostial 50 to 70% stenosis. Mid LAD without significant disease. Distal vessel with tortuosity and a long eccentric up to 50% stenosis. BEu-skiqf-qihgsqy and nondominant. Travels in the AV groove where it gives a large OM1 which has some mild luminal irregularities. It then gives a large OM 2 which has proximal 40% stenosis. It terminates distally in the AV groove. The remainder of the circumflex and its branches have no angiographically evident disease. TEX-paasx-hgagrds and dominant vessel. Proximally there is a long eccentric up to 50% stenosis. The mid RCA has diffuse up to 40% stenosis. Distally there is mild scattered plaques of less than 20 to 30% stenosis and then the vessel becomes a large PDA which has no disease. Summary: 1. Mild to moderate nonocclusive disease as described 2. Recommend guideline directed medical therapy for secondary prevention of coronary disease to include; low-dose aspirin, high intensity statin therapy, beta-ronaldo, plus or minus BELLA inhibitor/ARB. Regimen to be determined by primary transmission tester. Hemodynamics Rest Ao:: 129/88 mmHg Final Ao: 128/85 mmHg LV: Not performed Recommendations Recommendations: Medical Therapy and/or Counseling Radiation Exposure (mGy) 730 mGy, fluoroscopy time 3.3-minute Contrast (mls) 80 cc Anesthesia 1 mg Versed, 25 mcg fentanyl IV. 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 Any exceptions are noted below. [facility] Card Cath Procedure Codes Cardiac Catheterization Procedure 1: Cardiovascular Cath Procedures: 89557 Coronaries Moderate Sedation Procedure 1: Sedation/Anesthesia: 74995 Mod Sedation by the same physician;Init15 Min Child Age 5 & Up (Initial 15 minutes, start time 1446, end time 1456) PG Care Time/CCT Total # of Minutes Spent Total Time Spent with Patient: Total time spent is greater than 50% in coordination of care (as documented) at patient's floor/unit and/or counseling patient:
[2024-02-23] MEDS: ACETAMINOPHEN 325 MG TAB PO PRN (16:00)
[2024-02-23 18:27] VITALS: RESP 18
--- NOTE | 2024-02-23 22:00 | Hospitalist Progress Note ---
Date of Service February 23, 2024 Assessment & Plan (1) Dysrhythmia: Plan: Frequent PVCs on telemetry and EKG, mostly bigeminy. In setting of presyncope, if not ischemic, possibly longer runs of NSVT causing this. Assess for ischemia with dobutamine stress echo appreciate input from Cardiology: cardiac cath was did not show signs of significant CAD. PAtient will be treated medically.. will place on metoprolol in AM. (2) Near syncope: Plan: No clear cause on admission of episodic episodes Glucose normal at time of episode Assess for ischemic cause with dobutamine stress echo Otherwise consider dysrhythmia as above Possible vasovagal due to GI process however vomiting episode occurred after initial symptoms and no abdominal pain or change in bowels related to episode (3) Hypomagnesemia: Plan: Mg level 1.5. Mg sulfate 1g ordered in the ER, additional 2g ordered Given ongoing metformin and PPI use recommend chronic supplementation (4) Diabetes mellitus: Plan: HbA1c with a.m. labs Hold metformin and glimepiride NovoLog for correction factor only, if using frequently and basal dosing (5) Hypertension: Plan: Continue her usual lisinopril/hydrochlorothiazide/amlodipine Plan VTE prophylaxis - low risk Diet - heart healthy, type 2 diabetes, n.p.o. after midnight Disposition - observation to PCU Admission and Anticipated Discharge Date Admission Date: February 22, 2024 Subjective 73 yo female reports feeling well. Tolerated her cardiac cath. Review of Systems Review of Systems: All systems reviewed & are unremarkable except as noted in HPI & below Physical Exam Physical Exam: Constitutional: WD/WN, vitals as above Eyes: PERRL, conjunctivae normal, anicteric sclerae ENMT: external ear and nose normal, oropharynx normal Respiratory: normal respiratory effort, lungs clear to auscultation Cardiovascular: Rate/Rhythm: regular rate and regular rhythm Heart Sounds: + murmur (Systolic) Gastrointestinal (Abdomen): normal bowel sounds, soft, nontender, no hepatosplenomegaly Musculoskeletal: no cyanosis or clubbing, extremities motor strength 5/5 Skin: no rashes, warm and dry Neurologic: moves all extremities and awake; not confused Psychiatric: A+Ox3, euthymic affect Results & Data Results & Data Vital Signs (Past 12 Hours) Vital Signs Temp Pulse Pulse Pulse Resp BP Pulse Ox 02/23/24 21:26 02/23/24 20:21 02/23/24 19:50 36.8 C 74 18 131/86 94 02/23/24 18:21 67 18 112/71 97 02/23/24 17:21 73 16 110/70 95 02/23/24 16:21 69 16 122/82 97 02/23/24 15:51 36.8 C 71 18 147/92 H 97 02/23/24 15:47 73 02/23/24 15:38 36.8 C 74 18 126/80 95 02/23/24 15:20 78 14 140/87 98 02/23/24 15:07 81 14 158/90 H 98 02/23/24 13:47 70 14 144/84 H 98 02/23/24 13:10 65 02/23/24 11:04 36.7 C 57 L 18 143/82 H 97 O2 Del Method 02/23/24 21:26 Room Air 02/23/24 20:21 Room Air 02/23/24 19:50 Room Air 02/23/24 18:21 Room Air 02/23/24 17:21 Room Air 02/23/24 16:21 Room Air 02/23/24 15:51 Room Air 02/23/24 15:47 02/23/24 15:38 Room Air 02/23/24 15:20 Room Air 02/23/24 15:07 Room Air 02/23/24 13:47 Room Air 02/23/24 13:10 02/23/24 11:04 Room Air PG Care Time/CCT Total # of Minutes Spent Total Time Spent with Patient: Total time spent is greater than 50% in coordination of care (as documented) at patient's floor/unit and/or counseling patient: Coding Level of Care Code 73562 SUB INP/OBS CARE 2/35MIN Diagnoses Other cardiac arrhythmia I49.8 Arrhythmia type: other cardiac arrhythmia Near syncope R55 Hypomagnesemia E83.42 Type 2 diabetes mellitus without complication, without long-term current use of insulin E11.9 Diabetes mellitus complication status: without complication Diabetes mellitus remote computer terminal operator insulin use: without remote computer terminal operator use Diabetes mellitus type: type 2 Primary hypertension I10 Hypertension type: primary hypertension (1) Dysrhythmia Arrhythmia type: other cardiac arrhythmia Qualified Code(s): I49.8 - Other specified cardiac arrhythmias (4) Diabetes mellitus Diabetes mellitus complication status: without complication Diabetes mellitus remote computer terminal operator insulin use: without skilled nursing use Diabetes mellitus type: type 2 Qualified Code(s): E11.9 - Type 2 diabetes mellitus without complications (5) Hypertension Hypertension type: primary hypertension Qualified Code(s): I10 - Essential (primary) hypertension
[2024-02-24 07:13] LABS: Hemoglobin 10.7 g/dl (12.0-16.0); Mean Corpuscular Hemoglobin 24.9 pg (25.0-34.0); Mean Corpuscular Hgb Conc 32.4 g/dL (32.0-36.0); Mean Corpuscular Volume 76.9 fL (80.0-100.0); Platelet Count 248 K/uL (130-400); RDW Standard Deviation 43.9 fL (36.4-46.3); Red Blood Count 4.29 M/uL (4.20-5.40); White Blood Count 5.45 K/ul (4.8-10.8)
[2024-02-24 07:14] VITALS: BP 120/79; TEMP 99; O2SAT 96
[2024-02-24 07:20] LABS: BUN Creatinine Ratio 13.6 (10-20); Calcium 8.8 mg/dl (8.6-10.3); Creatinine Clr Calc Pharmacy 56.7 ml/min; Est GFR (Non-African American) 64.7 ml/min; Potassium 3.6 mmol/L (3.5-5.1)
--- NOTE | 2024-02-24 08:02 | Cardiology Progress Note ---
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 I will follow-up with an event monitor postdischarge. Will also see if we can get her authorized for a PCSK9 inhibitor. I will follow-up with her in 5 to 6 weeks. Should be discharged on aspirin beta-ronaldo would continue her BELLA inhibitor proton pump inhibitor and discontinue her amlodipine. I asked her to make sure she follows up with her PCP regarding her chronic anemia and the hematuria which she reports having had for years. She thinks this is related to kidney stones but this needs to be followed up. The last time she saw a urologist was approximately 8 years ago when she had lithotripsy procedures in [place]. Admission and Anticipated Discharge Date Admission Date: February 22, 2024 Ady Garcias was seen today in follow-up. Her left heart catheterization was extensively reviewed with her. She did well with the procedure she has no complaints she was very complementary of the [facility] staff and Dr. Thomas. She has mild to moderate three-vessel CAD. Medical therapy is recommended. Because of her PVCs and recommending that we discontinue the amlodipine and change this over to low-dose metoprolol. I will follow-up with her in the office and do an event monitor on her. In addition we discussed primary p revention of cardiac events with reduction in her lipids. Unfortunately she has been statin intolerant to at least 5 lipids. No one has attempted to start her on a PCSK9 inhibitor. I will attempt to get this authorized as an outpatient and get her started on Repatha. She will have her event monitor and I will follow-up with her in about 5 to 6 weeks. Review of Systems Review of Systems: All systems reviewed & are unremarkable except as noted in HPI & below Physical Exam Physical Exam: AAO x 3 in NAD Constitutional: WD/WN, vitals as above ENMT: external ear and nose normal, oropharynx normal Respiratory: normal respiratory effort, lungs clear to auscultation Cardiovascular: RRR, no murmur, no edema Gastrointestinal (Abdomen): normal bowel sounds, soft, nontender, no hepatosplenomegaly Results & Data Vital Signs (Past 12 Hours) Vital Signs Temp Pulse Pulse Pulse Resp BP Pulse Ox 02/24/24 07:08 37.2 C 86 18 120/79 96 02/24/24 03:01 36.9 C 78 18 122/81 94 02/23/24 22:56 72 02/23/24 22:47 37.1 C 87 18 150/84 H 96 02/23/24 21:26 02/23/24 20:21 O2 Del Method 02/24/24 07:08 Room Air 02/24/24 03:01 Room Air 02/23/24 22:56 02/23/24 22:47 Room Air 02/23/24 21:26 Room Air 02/23/24 20:21 Room Air Laboratory Results Abnormal lab results 02/23/24 02/23/24 02/23/24 Range/Units 07:25 11:02 15:41 Hgb (12.0-16.0) g/dl Hct (37.0-47.0) % MCV (80.0-100.0) fL MCH (25.0-34.0) pg RDW Coeff of Sabi (11.5-14.5) % MPV (9.4-12.4) fL Glucose 149 H (70-99(Fasting)) mg/dl POC Glucose 173 H 107 H (70-99) mg/dl Hemoglobin A1c 8.1 H (4.5-5.6) % Calcium 8.5 L (8.6-10.3) mg/dl Unsaturated IBC 376 H (155-355) mcg/dl Transferrin % Sat 13 L (15-50) % 02/23/24 02/24/24 02/24/24 Range/Units 19:53 06:43 07:12 Hgb 10.7 L (12.0-16.0) g/dl Hct 33.0 L (37.0-47.0) % MCV 76.9 L (80.0-100.0) fL MCH 24.9 L (25.0-34.0) pg RDW Coeff of Sabi 16.0 H (11.5-14.5) % MPV 9.0 L (9.4-12.4) fL Glucose 160 H (70-99(Fasting)) mg/dl POC Glucose 220 H 167 H (70-99) mg/dl Hemoglobin A1c (4.5-5.6) % Calcium (8.6-10.3) mg/dl Unsaturated IBC (155-355) mcg/dl Transferrin % Sat (15-50) % Diagnostic Findings Cardiac Cath: PQD-qszmt-bokmvhb vessel bifurcating into LAD and circumflex. No angiographi madi significant disease. EDG-rtbzx-gvixzbd vessel. Transapical. Proximal segment with mild less than 30% stenosis. Gives a large branching first diagonal without significant disease and a large septal branch which has ostial 50 to 70% stenosis. Mid LAD without significant disease. Distal vessel with tortuosity and a long eccentric up to 50% stenosis. WFj-eimot-nrzujyl and nondominant. Travels in the AV groove where it gives a large OM1 which has some mild luminal irregularities. It then gives a large OM 2 which has proximal 40% stenosis. It terminates distally in the AV groove. The remainder of the circumflex and its branches have no angiographically evident disease. QFX-mocbz-mzyylia and dominant vessel. Proximally there is a long eccentric up to 50% stenosis. The mid RCA has diffuse up to 40% stenosis. Distally there is mild scattered plaques of less than 20 to 30% stenosis and then the vessel becomes a large PDA which has no disease. Summary: 1. Mild to moderate nonocclusive disease as described 2. Recommend guideline directed medical therapy for secondary prevention of coronary disease to include; low-dose aspirin, high intensity statin therapy, beta-ronaldo, plus or minus BELLA inhibitor/ARB. (5) Diabetes mellitus Diabetes mellitus complication status: without complication Diabetes mellitus intermediate insulin use: without rodent exterminator use Diabetes mellitus type: type 2 Qualified Code(s): E11.9 - Type 2 diabetes mellitus without complications
[2024-02-24] MEDS: METOPROLOL SUCC 25MG EXT REL TAB PO SCH (08:36)
--- NOTE | 2024-02-24 09:56 | Discharge Summary ---
Discharge Summary Date of Service February 24, 2024 Principal Dx & Hospital Course #1 = Principal Diagnosis (1) Dysrhythmia: Frequent PVCs on telemetry and EKG, mostly bigeminy. In setting of presyncope, ischemic workup was completed. Dobutamine stress test was positive which then led to a cardiac cath. appreciate input from Cardiology: cardiac cath was did not show signs of significant CAD. 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 No angiographically significant disease. OAP-krknr-nxiuwmn vessel. Transapical. Proximal segment with mild less than 30% stenosis. Gives a large branching first diagonal without significant disease and a large septal branch which has ostial 50 to 70% stenosis. Mid LAD without significant disease. Distal vessel with tortuosity and a long eccentric up to 50% stenosis. TYc-lqmps-lcratuc and nondominant. Travels in the AV groove where it gives a large OM1 which has some mild luminal irregularities. It then gives a large OM 2 which has proximal 40% stenosis. It terminates distally in the AV groove. The remainder of the circumflex and its branches have no angiographically evident disease. JQL-xvjbb-xzxplsi and dominant vessel. Proximally there is a long eccentric up to 50% stenosis. The mid RCA has diffuse up to 40% stenosis. Distally there is mild scattered plaques of less than 20 to 30% stenosis and then the vessel becomes a large PDA which has no disease. Summary: 1. 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 (2) Near syncope: No clear cause on admission of episodic episodes Glucose normal at time of episode Assessed for ischemic cause as stated above Otherwise consider dysrhythmia as above Possible vasovagal due to GI process however vomiting episode occurred after initial symptoms and no abdominal pain or change in bowels related to episode (3) Hypomagnesemia: repleted Mg level 1.5. Mg sulfate 1g ordered in the ER, additional 2g ordered Given ongoing metformin and PPI use recommend chronic supplementation (4) Diabetes mellitus: resume home meds at discharge (5) Hypertension: Continue her usual lisinopril/hydrochlorothiazide/amlodipine Admission HPI Per Admitting Provider Katerine Rubio is a 73 year old female who presents to the ER with presyncope an d frequent PVCs. She notes occasionally having cold sweats while vacuuming the floor which is relieved with rest. These episodes have been coming on with increasing frequency and severity. The last 2 episodes of being much more severe. On Tuesday night, approximately 1/2 hours after eating she developed cold sweats, associated generalized weakness, lightheadedness. A couple of minutes later she vomited. No vertigo. The episode lasted approximately 1 hour. She took a glucose level which was 170 approximately 30 minutes after the episode started and before she ate anything. She had an additional episode on Tuesday night with a similar feeling while in an elevator. She denies complete syncope but had to hold onto the railing and fell down onto her backside. Yesterday she ate lightly and had no episodes. Today she had an appointment with her primary care physician who took an EKG in the office showing frequent PVCs in a bigeminy pattern and she was recommended to come to the ER for further assessment. She denies any chest pain, abdominal pain, change in bowels with these episodes. She denies any history of stroke or heart attack. She has no recent changes of medications. Her lisinopril/hydrochlorothiazide was increased from 1 to 2 pills approximately a year ago and amlodipine was added about the same time. She recalls HbA1c around 7.4. Glimepiride was last increased many months ago. Discharge Exam Constitutional: WD/WN, vitals as above Eyes: PERRL, conjunctivae normal, anicteric sclerae ENMT: external ear and nose normal, oropharynx normal Respiratory: normal respiratory effort, lungs clear to auscultation Cardiovascular: Rate/Rhythm: regular rate and regular rhythm Heart Sounds: + murmur (Systolic) Gastrointestinal (Abdomen): normal bowel sounds, soft, nontender, no hepatosplenomegaly Musculoskeletal: no cyanosis or clubbing, extremities motor strength 5/5 Skin: no rashes, warm and dry Neurologic: moves all extremities and awake; not confused Psychiatric: A+Ox3, euthymic affect Discharge Plan Discharge Items Patient Disposition: Home - Self-Care Reason For Visit: PRESYNCOPE Discharge Diagnosis: presyncope Activity: Resume your previous activity Non-emergency contact: Primary Care Provider Call non-emergency contact if: you have any medication questions Follow-up/Referrals: Brannon Soriano MD [Primary Care Provider] - 03/01/24 10:45 am (Hospital follow up schedued March 01 at 10:45 with CHEYENNE Forrester) Diet: Carb Consistent or DM2 Addtl Attending Provider Instructions: We will discharge you on asprin 81 mg daily Metoprolol 25mg at bedtime We will discontinue amlodipine Dr. Garcia will set you up with an event monitor. Recommend followup with PCP in 1-2 weeks. Pending Studies at Discharge: No Stand-Alone Forms: [facility] [employer], Smoking Cessation Medications and DC Order Prescriptions: New aspirin 81 mg tablet,delayed release (DR/EC) 81 mg PO DAILY Qty: 30 0RF metoprolol succinate 25 mg tablet extended release 24 hr 25 mg PO HS Qty: 30 0RF Continued metformin 500 mg Tablet 500 mg PO TIDM Rx Instructions: ON HOLD D/T CT SCAN. lisinopril-hydrochlorothiazide 20-12.5 mg Tablet 2 tab PO QAM meclizine 25 mg Tablet 25 mg PO TID PRN (Reason: Vertigo) pantoprazole 40 mg Tablet,Delayed Release (Dr/Ec) 40 mg PO QAM glimepiride 4 mg Tablet 4 mg PO BID Rx Instructions: PER PT "TOOK AN EXTRA DOSE TODAY, D/T CT SCAN AND UNABLE TO TAKE METFORMIN". cholecalciferol (vitamin D3) [Vitamin D3] 50 mcg (2,000 unit) Capsule 50 mcg PO QAM levothyroxine 100 mcg Tablet 100 mcg PO DAILY Discontinued amlodipine 2.5 mg Tablet 2.5 mg PO DAILY Discharge Orders: Discharge Order (Routine); Ordered 02/24/24 Ordered By: Daniel Maravilla/Other Patient Handouts: Managing Type 2 Diabetes Admission Data Admit Date/Time: 02/22/24 16:36 Attending Provider: Daniel Fortune Admit Provider: Porter Cardona Primary Care Provider: Brannon Soriano Other Providers: Porter Cardona; Shaina Garcia Hospital Stay Data Consultations 02/22/24 16:35 ED Decision to Admit Stat 02/22/24 22:12 Consult Cardiology Routine Procedures Performed Operation Date: 02/23/24 15:00 Actual Procedures p Cineradiography w/Routine Exam - Winston Thomas MD, PhD p Cath, Coronaries ONLY (no LV) - Winston Thomas MD, PhD Diagnostic Imagining Performed 02/23/24 14:32 CL Cath Imgs for PACS use only Routine Pending Results Patient Have Any Pending Studies at Discharge: No Discharge Instructions Given to Patient (Per Discharging Provider) We will discharge you on asprin 81 mg daily Metoprolol 25mg at bedtime We will discontinue amlodipine Dr. Garcia will set you up with an event monitor. Recommend followup with PCP in 1-2 weeks. 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
[2024-02-24 10:58] VITALS: PULSE 86
== END 2024-02-24 12:00 | disposition home or self-care (01) ==
LOC: ED 13:10 → 2S 13:10 → SUATTDRO 16:36 → 2S 17:57
PROC: CLB.CCO (2024-02-23 15:00)